=== PATIENT | male | born 1985 | race Caucasian/White ===

== ENCOUNTER 2017-07-05 10:49 | Emergency (ER) | payer OTHER ==
[2017-07-05] MEDS ORDERED: NORMAL SALINE 1000 ML 1,000 ML IV ONE ×2 (11:12→12:07)
--- NOTE | 2017-07-05 11:25 | ER Document Report ---
ED Medical Screen (RME) - General Chief Complaint: Abdominal Pain Stated Complaint: PAIN ON LEFT SIDE Time Seen by Provider: 07/05/17 11:12 Notes: Patient presents with severe left upper quadrant abdominal pain and vomiting. He states he was just discharged from [facility] on Jun 26. He states that he spent approximately 3 months in the hospital for necrotizing pancreatitis. He states no cause for the pancreatitis was ever found. He states he had multiple abscesses in his abdomen that were treated with antibiotics at various times during the 3 months. He states that the doctor at the [facility] told him to come to the hospital today and have a CAT scan. The phone number for this doctor is with extension [phone]. The doctor's name is Dr. Hoffmann. I tried to call from triage but he was in the operating room. TRAVEL OUTSIDE OF THE [place] IN LAST 30 DAYS: No - Related Data Allergies/Adverse Reactions: No Known Allergies Allergy (Unverified 07/05/17 10:51) Home Medications: Current Home Medications Acetaminophen [Acetaminophen] 650 mg PO PRN PRN 07/05/17 [History] Calcium Carbonate [Calcium] 750 mg PO PRN PRN 07/05/17 [History] Gabapentin [Gabapentin] 300 mg PO TID 07/05/17 [History] Hydromorphone HCl 2 mg PO PRN PRN 07/05/17 [History] NPH, Human Insulin Isophane [Novolin N (NPH) Insulin 100 unit/mL] 1 unit SUBCUT ACHS 07/05/17 [History] Ondansetron HCl [Ondansetron HCl] 8 mg PO PRN PRN 07/05/17 [History] Sertraline HCl [Zoloft 50 mg Tablet] 100 mg PO DAILY 07/05/17 [History] Warfarin Sodium [Warfarin Sodium] 2.5 mg PO QPM 07/05/17 [History] Past Medical History - Social History Chew tobacco use (# tins/day): No Frequency of alcohol use: None Drug Abuse: None Renal/ Medical History: Denies: Hx Peritoneal Dialysis Physical Exam - Vital signs Vitals: Temp Pulse Resp BP Pulse Ox 98.7 F 137 H 18 133/88 H 99 07/05/17 10:59 07/05/17 10:59 07/05/17 10:59 07/05/17 10:59 07/05/17 10:59 Course - Vital Signs Vital signs: Temp Pulse Resp BP Pulse Ox 98.7 F 137 H 18 133/88 H 99 07/05/17 10:59 07/05/17 10:59 07/05/17 10:59 07/05/17 10:59 07/05/17 10:59
--- NOTE | 2017-07-05 11:45 | ER Document Report ---
ED GI/ - General Chief Complaint: Abdominal Pain Stated Complaint: PAIN ON LEFT SIDE Time Seen by Provider: 07/05/17 11:12 Notes: The patient is a 31-year-old male, past medical history necrotizing pancreatitis status post partial pancreatectomy 3 months ago with 3 months of admission to [facility], right upper extremity DVT (on Coumadin), presents with increasing left upper quadrant and epigastric abdominal pain. He called his surgeon, Dr. Hoffmann, and was told to come to the closest ER for a CAT scan to make sure that he does not have any reaccumulation of his abscesses. Patient denies nausea, vomiting, hematuria, dysuria, flank pain, chest pain, shortness of breath, diarrhea, constipation or headache. TRAVEL OUTSIDE OF THE [place] IN LAST 30 DAYS: No - Related Data Allergies/Adverse Reactions: No Known Allergies Allergy (Unverified 07/05/17 10:51) Home Medications: Current Home Medications Acetaminophen [Acetaminophen] 650 mg PO PRN PRN 07/05/17 [History] Calcium Carbonate [Calcium] 750 mg PO PRN PRN 07/05/17 [History] Gabapentin [Gabapentin] 300 mg PO TID 07/05/17 [History] Hydromorphone HCl 2 mg PO PRN PRN 07/05/17 [History] NPH, Human Insulin Isophane [Novolin N (NPH) Insulin 100 unit/mL] 1 unit SUBCUT ACHS 07/05/17 [History] Ondansetron HCl [Ondansetron HCl] 8 mg PO PRN PRN 07/05/17 [History] Sertraline HCl [Zoloft 50 mg Tablet] 100 mg PO DAILY 07/05/17 [History] Warfarin Sodium [Warfarin Sodium] 2.5 mg PO QPM 07/05/17 [History] Past Medical History - General Information source: Patient - Social History Smoking Status: Former Smoker Chew tobacco use (# tins/day): No Frequency of alcohol use: None Drug Abuse: None Family History: Reviewed & Not Pertinent Patient has suicidal ideation: No Patient has homicidal ideation: No Renal/ Medical History: Denies: Hx Peritoneal Dialysis Review of Systems - Review of Systems Notes: REVIEW OF SYSTEMS: CONSTITUTIONAL: -fevers, -chills EENT: -eye pain, -difficulty swallowing, -nasal congestion CARDIOVASCULAR:-chest pain, -syncope. RESPIRATORY: -cough, -SOB GASTROINTESTINAL: +abdominal pain, -nausea, -vomiting, -diarrhea GENITOURINARY: -dysuria, -hematuria MUSCULOSKELETAL: -back pain, -neck pain SKIN: -rash or skin lesions. HEMATOLOGIC: -easy bruising or bleeding. LYMPHATIC: -swollen, enlarged glands. NEUROLOGICAL: -altered mental status or loss of consciousness, -headache, - neurologic symptoms PSYCHIATRIC: -anxiety, -depression. ALL OTHER SYSTEMS REVIEWED AND NEGATIVE. Physical Exam - Vital signs Vitals: Temp Pulse Resp BP Pulse Ox 98.7 F 137 H 18 133/88 H 99 07/05/17 10:59 07/05/17 10:59 07/05/17 10:59 07/05/17 10:59 07/05/17 10:59 - Notes Notes: PHYSICAL EXAMINATION: GENERAL: Mild distress. HEAD: Atraumatic, normocephalic. EYES: Pupils equal round and reactive to light, extraocular movements intact, sclera anicteric, conjunctiva are normal. ENT: nares patent, oropharynx clear without exudates. Moist mucous membranes. NECK: Normal range of motion, supple without lymphadenopathy LUNGS: Breath sounds clear to auscultation bilaterally and equal. No wheezes rales or rhonchi. HEART: Tachycardia, regular rhythm ABDOMEN: Soft, moderate epigastric tenderness, normoactive bowel sounds. J-tube in place. Multiple surgical scars. No guarding, no rebound. No masses appreciated. EXTREMITIES: Normal range of motion, no pitting or edema. No cyanosis. NEUROLOGICAL: Cranial nerves grossly intact. Normal speech, normal gait. Normal sensory and motor exams. PSYCH: Normal mood, normal affect. SKIN: Warm, Dry, normal turgor, no rashes or lesions noted. Course - Re-evaluation Re-evalutation: 07/05/17 14:11 Pt with clinical evidence of pancreatitis on exam, with elevated lipase and on CAT scan. Patient also has a 2 mm right proximal stone with mild hydronephrosis, but he has no right flank pain or symptoms of kidney stones. Placed a call to his surgeon at the [facility] and spoke to his internet project manager. Awaiting a call back. 07/05/17 15:15 Spoke to Kieran (Surgery Grinder Set Up Operator [employer] at [facility]) and he will accept patient under Dr. John Bruno's service. Placed call to transfer center and left message. Awaiting callback. 07/05/2017 15:30 Spoke to [employer] Infrastructure Consultant and she is sending paperwork for transfer. 07/05/17 18:48 Spoke to [facility] and he has officially been accepted as a transfer. - Vital Signs Vital signs: Temp Pulse Resp BP Pulse Ox 98.7 F 137 H 18 133/88 H 99 07/05/17 10:59 07/05/17 10:59 07/05/17 10:59 07/05/17 10:59 07/05/17 10:59 - Laboratory Result Diagrams: 07/05/17 11:37 07/05/17 11:37 Laboratory results interpreted by me: 07/05/17 07/05/17 07/05/17 11:37 11:37 11:37 RBC 3.70 L Hgb 10.9 L Hct 32.3 L RDW 20.9 H PT 39.3 H APTT 81.2 H Glucose 170 H Calcium 10.3 H AST 160 H ALT 268 H Alkaline Phosphatase 490 H Lipase 2282.0 H Urine Protein Urine Glucose (UA) Urine Blood Ur Leukocyte Esterase 07/05/17 14:31 RBC Hgb Hct RDW PT APTT Glucose Calcium AST ALT Alkaline Phosphatase Lipase Urine Protein 100 H Urine Glucose (UA) 50 H Urine Blood LARGE H Ur Leukocyte Esterase TRACE H - Diagnostic Test Radiology reviewed: Image reviewed, Reports reviewed Radiology results interpreted by me: CT A/P: 1. Pancreatitis status post partial pancreatectomy. Correlation with serum chemistries is recommended. 2. Regional adenopathy. No obvious pancreatic mass. 3. 2 mm stone proximal right ureter. Mild hydronephrosis. - EKG Interpretation by Me EKG shows normal: Sinus rhythm, [place], Intervals, QRS Complexes, ST-T Waves Rate: Tachycardia Discharge - Discharge Clinical Impression: Pancreatitis, acute Qualifiers: Pancreatitis type: unspecified pancreatitis type Acute pancreatitis complication: unspecified Qualified Code(s): K85.90 - Acute pancreatitis without necrosis or infection, unspecified Condition: Stable Disposition: OTHER
[2017-07-05 11:56] LABS: ABSOLUTE EOSINOPHILS # (AUTO) 0.1 10^3/uL (0.0-0.6); ABSOLUTE LYMPHOCYTES (AUTO) 1.3 10^3/uL (0.5-4.7); ABSOLUTE MONOCYTES (AUTO) 0.8 10^3/uL (0.1-1.4); BASOPHILS % (AUTO) 0.3 % (0-2); EOSINOPHILS % (AUTO) 1.2 % (0-6); HEMATOCRIT 32.3 % (37.9-51.0); HEMOGLOBIN 10.9 g/dL (13.5-17.0); HGB HCT DIFFERENCE 0.4; LYMPHOCYTES % (AUTO) 13.5 % (13-45); MEAN CORPUSCULAR HEMOGLOBIN 29.4 pg (27.0-33.4); MEAN CORPUSCULAR HGB CONC 33.7 g/dL (32.0-36.0); MEAN CORPUSCULAR VOLUME 87 fl (80-97); MONOCYTES % (AUTO) 8.9 % (3-13); RED CELL DISTRIBUTION WIDTH 20.9 % (11.5-14.0); SEGMENTED NEUTROPHILS % (AUTO) 76.1 % (42-78); WHITE BLOOD COUNT 9.2 10^3/uL (4.0-10.5)
[2017-07-05 11:57] LABS: VENOUS BLOOD BASE EXCESS 1.8 mmol/L; VENOUS BLOOD HCO3 26.6 mmol/L (20-32); VENOUS BLOOD PCO2 42.4 mmHg (35-63); VENOUS BLOOD PH 7.42 (7.30-7.42)
[2017-07-05] MEDS ORDERED: HYDROMORPHONE HCL INJ/PF 2 MG/ML AMPULE IV ONE (12:07)
[2017-07-05 12:16] LABS: ALANINE AMINOTRANSFERASE 268 U/L (21-72); ALBUMIN 4.3 g/dL (3.5-5.0); ALKALINE PHOSPHATASE 490 U/L (38-126); ANION GAP 13 (5-19); ASPARTATE AMINO TRANSFERASE 160 U/L (17-59); BILIRUBIN,DIRECT 0.4 mg/dL (0.0-0.4); BILIRUBIN,TOTAL 0.8 mg/dL (0.2-1.3); BLOOD UREA NITROGEN 16 mg/dL (7-20); CALCIUM 10.3 mg/dL (8.4-10.2); CARBON DIOXIDE 30 mmol/L (22-30); CHLORIDE 101 mmol/L (98-107); CREATININE RESULT 1.03 mg/dL (0.52-1.25); GLUCOSE 170 mg/dL (75-110); POTASSIUM 4.1 mmol/L (3.6-5.0); SODIUM 144.3 mmol/L (137-145); TOTAL PROTEIN 7.8 g/dL (6.3-8.2)
--- NOTE | 2017-07-05 13:11 | EKG REPORT ---
SEVERITY:- OTHERWISE NORMAL ECG - SINUS TACHYCARDIA : Confirmed by: Rolly Del Valle MD 05-Jul-2017 13:10:53
--- NOTE | 2017-07-05 13:43 | RADIOLOGY REPORT (SQ) ---
EXAM DESCRIPTION: CT ABD/PELVIS WITH IV ONLY COMPLETED DATE/TIME: 07/05/2017 1:24 pm REASON FOR STUDY: luq pain/hx nec panc COMPARISON: None. TECHNIQUE: CT scan of the abdomen and pelvis performed using helical scanning technique with dynamic intravenous contrast injection. No oral contrast. Images reviewed with lung, soft tissue, and bone windows. Reconstructed coronal and sagittal MPR images reviewed. Delayed images for evaluation of the urinary system also acquired. All images stored on PACS. All CT scanners at this facility use dose modulation, iterative reconstruction, and/or weight based d osing when appropriate to reduce radiation dose to as low as reasonably achievable (ALARA). [facility]: Dose Right [facility]: CareDose [facility]: Dose Right [facility]: Teradose 4D [facility]: Radar da Produção CONTRAST TYPE AND DOSE: contrast/concentration: Isovue 370.00 mg/ml; Total Contrast Delivered: 64.0 ml; Total Saline Delivered: 65.0 ml RENAL FUNCTION: BUN 16 creatinine 1.0 RADIATION DOSE: CT Rad equipment meets quality standard of care and radiation dose reduction techniq ues were employed. CTDIvol: NaN - NaN mGy. DLP: 0 mGy-cm.. LIMITATIONS: None. FINDINGS: LOWER CHEST: Trace left pleural fluid. LIVER: Normal size. No masses. No dilated ducts. SPLEEN: Normal size. No focal lesions. PANCREAS: Partial pancreatectomy. No obvious pancreatic mass or obvious necrosis. Inflammatory walter ges in the lesser sac. GALLBLADDER: No identified stones by CT criteria. No inflammatory changes to suggest cholecystitis. ADRENAL GLANDS: No significant masses or asymmetry. RIGHT KIDNEY AND URETER: No solid masses. 2 mm stone proximal right ureter. Renal calculi measurin g up to about 2 mm. Mild hydronephrosis. LEFT KIDNEY AND URETER: No solid masses. Renal calculi measuring up to about 2 mm. No hydronephro sis or hydroureter. AORTA AND VESSELS: No aneurysm or pseudoaneurysm. RETROPERITONEUM: Subcentimeter retroperitoneal nodes. BOWEL AND PERITONEAL CAVITY: Percutaneous jejunostomy to right of midline. No significant ascites. Regional adenopathy in the celiac axis maximum diameter just over 1 cm. No free air. APPENDIX: Not visualized. PELVIS: Presacral soft tissue density measuring about 2.0 x 5.6 cm in AP by craniocaudal diameter. ABDOMINAL WALL: See above. No evidence of incarcerated hernia. BONES: No acute findings. Osteopenia. OTHER: No other significant finding. IMPRESSION: 1. Pancreatitis status post partial pancreatectomy. Correlation with serum chemistries is recommende d. 2. Regional adenopathy. No obvious pancreatic mass. 3. 2 mm stone proximal right ureter. Mild hydronephrosis. TECHNICAL DOCUMENTATION: JOB ID: [id number] Quality ID # [id number]: Final reports with documentation of one or more dose reduction techniques (e.g., Au tomated exposure control, adjustment of the mA and/or kV according to patient size, use of iterative reconstruction technique) 2010 [employer]- All Rights Reserved
[2017-07-05] MEDS: HYDROMORPHONE HCL INJ/PF 2 MG/ML AMPULE IV PRN ×5 (14:18→23:46)
[2017-07-05] MEDS ORDERED: ONDANSETRON HCL INJ/PF 4 MG/2 ML SDV IV ONE (14:37)
[2017-07-05 14:54] LABS: PROTHROMBIN TIME 39.3 SEC (11.4-15.4)
[2017-07-05 14:55] LABS: PARTIAL THROMBOPLASTIN TIME 81.2 SEC (23.5-35.8)
[2017-07-05 14:59] LABS: APPEARANCE,URINE SLIGHTLY-CLOUDY; BILIRUBIN,URINE NEGATIVE (NEGATIVE); GLUCOSE, URINE 50 mg/dL (NEGATIVE); KETONES,URINE NEGATIVE (NEGATIVE); LEUKOCYTE ESTERASE,URINE TRACE (NEGATIVE); NITRITE,URINE NEGATIVE (NEGATIVE); PROTEIN,URINE 100 mg/dL (NEGATIVE); URINE SPECIFIC GRAVITY 1.021; UROBILINOGEN,URINE NEGATIVE mg/dL (<2.0)
[2017-07-05] MEDS ORDERED: NORMAL SALINE 1000 ML 1,000 ML IV PRN (16:40)
[2017-07-05] MEDS: CYCLOBENZAPRINE HCL 10 MG TABLET PO PRN (17:14)
[2017-07-05] MEDS ORDERED: INSULIN NPH (ISOPHANE), HUMAN 100 UNIT/ML 3 ML SUBCUT SCH (18:00)
[2017-07-06] MEDS: HYDROMORPHONE HCL INJ/PF 2 MG/ML AMPULE IV PRN ×7 (01:33→19:30)
[2017-07-06] MEDS: CYCLOBENZAPRINE HCL 10 MG TABLET PO PRN (04:20)
[2017-07-06] MEDS ORDERED: DEXTROSE 50%-WATER 25 GM/50 ML DISP.SYRIN IV ONE ×2 (04:23→06:31)
[2017-07-06] MEDS: DEXTROSE 5%-NORMAL SALINE 1,000 ML IV PRN ×2 (06:52→15:14)
[2017-07-06] MEDS ORDERED: DIPHENHYDRAMINE HCL 50 MG/ML VIAL IV ONE (08:02)
[2017-07-06] MEDS ORDERED: QUETIAPINE FUMARATE 25 MG TABLET PO SCH (10:00)
[2017-07-06] MEDS ORDERED: SERTRALINE HCL 50 MG TABLET PO SCH (11:00)
--- NOTE | 2017-07-06 11:33 | ER Document Report ---
Doctor's Note Notes: 07/06/17 11:31 Patient has been evaluated stable for transfer at this time currently waiting on [place] approval of transportation.
[2017-07-06 20:47] VITALS: BP 141/99
== END 2017-07-06 20:30 ==
LOC: ER 10:49
DX: K85.90 Acute pancreatitis without necrosis or infection, unspecified (principal); Z90.411 Acquired partial absence of pancreas; N13.2 Hydronephrosis with renal and ureteral calculous obstruction; R10.12 Left upper quadrant pain; R10.13 Epigastric pain; R00.0 Tachycardia, unspecified; I82.621 Acute embolism and thrombosis of deep veins of right upper extremity; Z79.01 Long term (current) use of anticoagulants; Z87.891 Personal history of nicotine dependence
CPT/HCPCS: 93005; 96376; 99285; 96361; 96374; 96375; 36415; 87040; 87086; 82962; 83690; 85025; 85610; 85730; 80053; 81001; 82803; 83605; 74177; 93010; J3490; J1200; J1170 ×2; J2405; J7030

== ENCOUNTER 2017-08-28 09:19 | Emergency (ER) | payer OTHER, MEDICAID ==
[2017-08-28] MEDS ORDERED: ONDANSETRON HCL INJ/PF 4 MG/2 ML SDV IV ONE (09:39)
[2017-08-28] MEDS ORDERED: MAG HYDROX/AL HYDROX/SIMETH SUSP 30 ML UDCUP PO ONE (09:43)
[2017-08-28] MEDS ORDERED: LIDOCAINE 2% VISCOUS SOLN 20 ML UDCUP PO ONE (09:43)
[2017-08-28] MEDS ORDERED: METOCLOPRAMIDE HCL ORAL SOLN 10 MG/10 ML UDCUP PO ONE (09:43)
[2017-08-28 10:15] LABS: ABSOLUTE EOSINOPHILS # (AUTO) 0.1 10^3/uL (0.0-0.6); ABSOLUTE LYMPHOCYTES (AUTO) 1.4 10^3/uL (0.5-4.7); ABSOLUTE MONOCYTES (AUTO) 0.8 10^3/uL (0.1-1.4); ABSOLUTE NEUT (AUTO) 11.8 10^3/uL (1.7-8.2); BASOPHILS % (AUTO) 0.3 % (0-2); EOSINOPHILS % (AUTO) 0.5 % (0-6); HEMATOCRIT 37.6 % (37.9-51.0); HEMOGLOBIN 12.6 g/dL (13.5-17.0); MEAN CORPUSCULAR HEMOGLOBIN 27.9 pg (27.0-33.4); MEAN CORPUSCULAR HGB CONC 33.5 g/dL (32.0-36.0); MEAN CORPUSCULAR VOLUME 83 fl (80-97); MONOCYTES % (AUTO) 5.6 % (3-13); PLATELET COUNT 270 10^3/uL (150-450); RED CELL DISTRIBUTION WIDTH 14.7 % (11.5-14.0); SEGMENTED NEUTROPHILS % (AUTO) 83.6 % (42-78); TOTAL CELLS COUNTED % (AUTO) 100 %; WHITE BLOOD COUNT 14.1 10^3/uL (4.0-10.5)
[2017-08-28 10:29] LABS: ALANINE AMINOTRANSFERASE 63 U/L (21-72); ALBUMIN 4.7 g/dL (3.5-5.0); ALKALINE PHOSPHATASE 153 U/L (38-126); ANION GAP 5 (5-19); ASPARTATE AMINO TRANSFERASE 62 U/L (17-59); BILIRUBIN,DIRECT 0.3 mg/dL (0.0-0.4); BILIRUBIN,TOTAL 0.3 mg/dL (0.2-1.3); BLOOD UREA NITROGEN 22 mg/dL (7-20); CALCIUM 10.6 mg/dL (8.4-10.2); CARBON DIOXIDE 27 mmol/L (22-30); CHLORIDE 110 mmol/L (98-107); CREATINE KINASE 158 U/L (55-170); GLUCOSE 76 mg/dL (75-110); POTASSIUM 4.4 mmol/L (3.6-5.0); SODIUM 142.4 mmol/L (137-145)
[2017-08-28 10:40] LABS: CREATINE KINASE MB 0.32 ng/mL (<4.55); TROPONIN I < 0.012 ng/mL
[2017-08-28 11:30] LABS: INTERNATIONAL RATION (INR) 1.67; PROTHROMBIN TIME 20.7 SEC (11.4-15.4)
--- NOTE | 2017-08-28 12:07 | RADIOLOGY REPORT (SQ) ---
EXAM DESCRIPTION: CTA CHEST COMPLETED DATE/TIME: 08/28/2017 11:45 am REASON FOR STUDY: hx multiple pe/dvt, right side chest pain COMPARISON: None. TECHNIQUE: CT scan of the chest performed using helical scanning technique with dynamic intravenous contrast injection. Images reviewed with lung, soft tissue and bone windows. Reconstructed coronal and sagittal MPR images reviewed. Additional 3 dimensional post-processing performed to develop Maximal Intensity Projection images (MD P). All images stored on PACS. All CT scanners at this facility use dose modulation, iterative reconstruction, and/or weight based d osing when appropriate to reduce radiation dose to as low as reasonably achievable (ALARA). [facility]: Dose Right [facility]: CareDose [facility]: Dose Right [facility]: Teradose 4D [facility]: [employer] CONTRAST TYPE AND DOSE: contrast/concentration: Isovue 370.00 mg/ml; Total Contrast Delivered: 65.0 ml; Total Saline Delivered: 85.0 ml Contrast bolus adequate for pulmonary arteries and aorta. RENAL FUNCTION: BUN 22 creatinine 0.91. RADIATION DOSE: CT Rad equipment meets quality standard of care and radiation dose reduction techniq ues were employed. CTDIvol: 14.3 - 16.5 mGy. DLP: 524 mGy-cm. . LIMITATIONS: None. FINDINGS: LUNGS AND PLEURA: No masses, infiltrates, pneumothorax. No pleural effusions, calcificati ons. AORTA AND GREAT VESSELS: No aneurysm. No dissection. HEART: No pericardial effusion. No significant coronary artery calcifications. PULMONARY ARTERIES: No emboli visualized in the main pulmonary arteries or the segmental branches. HILAR AND MEDIASTINAL STRUCTURES: No identified masses or abnormal nodes. HARDWARE: None in the chest. UPPER ABDOMEN: Gallstone. Limited exam. THYROID AND OTHER SOFT TISSUES: No masses. No adenopathy. BONES: No acute or significant finding. 3D MIPS: Confirm above findings. OTHER: No other significant finding. IMPRESSION: NORMAL CTA OF THE CHEST. NO PULMONARY EMBOLI. GALLSTONE. NO OTHER SIGNIFICANT FINDINGS COMMENT: Quality ID # [id number]: Final reports with documentation of one or more dose reduction techniques (e.g., Automated exposure control, adjustment of the mA and/or kV according to patient size, use of iterative reconstruction technique) TECHNICAL DOCUMENTATION: JOB ID: [id number] [employer]- All Rights Reserved
[2017-08-28] MEDS ORDERED: FENTANYL CITRATE INJ/PF 100 MCG/2 ML AMPUL IV ONE (12:12)
--- NOTE | 2017-08-28 12:13 | ER Document Report ---
ED General - General Chief Complaint: Nausea/Vomiting Stated Complaint: BODY ACHES Time Seen by Provider: 08/28/17 09:37 Mode of Arrival: Ambulatory Information source: Patient Notes: 31-year-old male history of extensive pancreatitis abscesses multiple drains and eventual surgery for cleanout with a feeding tube presents with complaints of right-sided chest pain. Patient denies any fevers or chills admits to nausea shortness of breath. Patient has multiple history of PEs PTs and other types of blood clots TRAVEL OUTSIDE OF THE [place] IN LAST 30 DAYS: No - HPI Onset: Just prior to arrival Onset/Duration: Sudden Quality of pain: Sharp Severity: Mild Pain Level: 1 Associated symptoms: Nausea, Vomiting Exacerbated by: Denies Relieved by: Denies Similar symptoms previously: No Recently seen / treated by doctor: No - Related Data Allergies/Adverse Reactions: No Known Allergies Allergy (Unverified 07/05/17 10:51) Past Medical History - Social History Smoking Status: Former Smoker Cigarette use (# per day): No Chew tobacco use (# tins/day): No Smoking Education Provided: No Frequency of alcohol use: None Drug Abuse: None Family History: Reviewed & Not Pertinent Patient has suicidal ideation: No Patient has homicidal ideation: No Renal/ Medical History: Denies: Hx Peritoneal Dialysis Past Surgical History: Reports: Hx Abdominal Surgery - pancreas removal Review of Systems - Review of Systems Notes: REVIEW OF SYSTEMS: CONSTITUTIONAL : Denies fever, chills, or sweats. Denies recent illness. EENT: Denies eye, ear, throat, or mouth pain or symptoms. Denies nasal or sinus congestion or discharge. Denies throat, tongue, or mouth swelling or difficulty swallowing. CARDIOVASCULAR: Admits to right-sided chest pain RESPIRATORY: Admits shortness of breath GASTROINTESTINAL: Some nausea vomiting GENITOURINARY: Denies difficulty urinating, painful urination, burning, frequency, blood in urine, or discharge. MUSCULOSKELETAL: Denies back or neck pain or stiffness. Denies joint pain or swelling. SKIN: Denies rash, lesions or sores. HEMATOLOGIC : Denies easy bruising or bleeding. LYMPHATIC: Denies swollen, enlarged glands. NEUROLOGICAL: Denies confusion or altered mental status. Denies passing out or loss of consciousness. Denies dizziness or lightheadedness. Denies headache. Denies weakness or paralysis or loss of use of either side. Denies problems with gait or speech. Denies sensory loss, numbness, or tingling. Denies seizures. PSYCHIATRIC: Denies anxiety or stress. Denies depression, suicidal ideation, or homicidal ideation. ALL OTHER SYSTEMS REVIEWED AND NEGATIVE. Dictation was performed using [employer] voice recognition software PHYSICAL EXAMINATION: GENERAL: Well-appearing, well-nourished and in no acute distress. HEAD: Atraumatic, normocephalic. EYES: Pupils equal round and reactive to light, extraocular movements intact, sclera anicteric, conjunctiva are normal. ENT: Nares patent, oropharynx clear without exudates. Moist mucous membranes. NECK: Normal range of motion, supple without lymphadenopathy LUNGS: Breath sounds clear to auscultation bilaterally and equal. No wheezes rales or rhonchi. HEART: Regular rate and rhythm without murmurs ABDOMEN: Large mid abdominal surgical incision right-sided feeding tube Musculoskeletal: Normal range of motion, no pitting or edema. No cyanosis. NEUROLOGICAL: Cranial nerves grossly intact. Normal speech, normal gait. Normal sensory, motor exams PSYCH: Normal mood, normal affect. SKIN: Warm, Dry, normal turgor, no rashes or lesions noted. Physical Exam - Vital signs Vitals: Temp Pulse Resp BP Pulse Ox 98.3 F 101 H 20 148/90 H 97 08/28/17 09:27 08/28/17 09:27 08/28/17 09:27 08/28/17 09:27 08/28/17 09:27 Course - Re-evaluation Re-evalutation: 08/28/17 12:14 CTA was negative, patient does have mild white count, a gallstone was noted therefore ultrasound has been ordered to evaluate for any cholecystitis 08/28/17 14:02 [facility] paged at request of family, sludge ball noted at neck of gallbladder which I beleive is the cuase of the pancreatitis. 08/28/17 14:05 [facility] is on diversion , I explained this to the patient, he wishes to be discharged and does not want to be transferred or admitted, he would prefer to call his own surgeon at [place], I explained to him the risks and benefits a sedated it appears pancreatitis is secondary to gallstones, I believe this is a terrible idea, I believe the patient will get infected and can become very sick and from this. He states he understands he understands the risks and benefits but he wishes to go home and called the surgeon himself. His phone does not work here and he does not have a number for the surgeon for me to call , therefore at his request since he is alert and oriented I will discharge with the understanding that he will get sicker if this is not taking care of After performing a Medical Screening Examination, I spoke with the patient at length in regards to leaving the hospital against medical advice. I do not believe the patient should leave but the patient is alert oriented x4, understands the risks and benefits of staying and leaving including disability and . Pt understands that he can return at any time for further care and is more than welcome to do so. Pt verbalizes this understanding. - Vital Signs Vital signs: Temp Pulse Resp BP Pulse Ox 98.3 F 101 H 16 130/82 H 98 08/28/17 09:27 08/28/17 09:27 08/28/17 11:01 08/28/17 11:01 08/28/17 11:01 - Laboratory Result Diagrams: 08/28/17 10:03 08/28/17 10:03 Laboratory results interpreted by me: 08/28/17 08/28/17 08/28/17 10:03 10:03 10:03 WBC 14.1 H Hgb 12.6 L Hct 37.6 L RDW 14.7 H Seg Neutrophils % 83.6 H Lymphocytes % 10.0 L Absolute Neutrophils 11.8 H PT 20.7 H Chloride 110 H BUN 22 H Calcium 10.6 H AST 62 H Alkaline Phosphatase 153 H Lipase 08/28/17 10:03 WBC Hgb Hct RDW Seg Neutrophils % Lymphocytes % Absolute Neutrophils PT Chloride BUN Calcium AST Alkaline Phosphatase Lipase 2847.0 H - Diagnostic Test Radiology reviewed: Image reviewed, Reports reviewed Discharge - Discharge Clinical Impression: Gallstone pancreatitis Abdominal pain Qualifiers: Abdominal location: right upper quadrant Qualified Code(s): R10.11 - Right upper quadrant pain Condition: Poor Disposition: AGAINST MEDICAL ADVICE Instructions: Abdominal Pain ([facility]) Additional Instructions: Please contact your surgeon immediately or return if there are any other concerns Prescriptions: Ciprofloxacin HCl [Cipro 500 mg Tablet] 500 mg PO BID #20 tablet Hydrocodone/Acetaminophen [[place] 5-325 mg Tablet] 1 tab PO Q6 #10 tablet Metoclopramide HCl [Reglan 10 mg Tablet] 1 - 2 tab PO ASDIR PRN #25 tablet PRN Reason: Metronidazole [Flagyl 500 mg Tablet] 500 mg PO Q8 #30 tablet
[2017-08-28] MEDS: NORMAL SALINE 1000 ML 1,000 ML IV PRN ×2 (13:43→13:45)
--- NOTE | 2017-08-28 13:55 | RADIOLOGY REPORT (SQ) ---
EXAM DESCRIPTION: U/S ABDOMEN LIMITED W/O DOP COMPLETED DATE/TIME: 08/28/2017 1:35 pm REASON FOR STUDY: RUQ COMPARISON: Chest CTA dated 08/28/2017. TECHNIQUE: Dynamic and static grayscale images acquired of the right upper quadrant and recorded on PACS. Additional selected color Doppler and spectral images recorded. LIMITATIONS: Study limited due to acoustical interference from fat or from air in the bowel. FINDINGS: PANCREAS: Obscured. LIVER: No masses. Echotexture normal. LIVER VASCULATURE: Normal directional flow of the main portal vein and hepatic veins. GALLBLADDER: Rounded echogenic material in the neck of the gallbladder. Nonvascular on Doppler imagi ng. Normal wall thickness. No pericholecystic fluid. ULTRASOUND-DETECTED STRICKLAND'S SIGN: Negative. INTRAHEPATIC DUCTS AND COMMON DUCT: CBD and intrahepatic ducts normal caliber. No filling defects. INFERIOR VENA CAVA: Normal flow. AORTA: Poorly visualized. RIGHT KIDNEY: Normal size. Normal echogenicity. No solid or suspicious masses. No hydronephrosis. No calcifications. PERITONEAL CAVITY AND RIGHT PLEURAL SPACE: No ascites or effusions. OTHER: No other significant finding. IMPRESSION: FOCAL SLUDGE OR " SLUDGE BALL" IN THE NECK OF THE GALLBLADDER. NO OTHER SIGNIFICANT FI NDINGS. TECHNICAL DOCUMENTATION: JOB ID: [id number] [email or web address]- All Rights Reserved
[2017-08-28 14:19] VITALS: BP 129/87
--- NOTE | 2017-08-28 15:17 | EKG REPORT ---
SEVERITY:- NORMAL ECG - SINUS RHYTHM : Confirmed by: Darryl Rodas 28-Aug-2017 15:16:26
== END 2017-08-28 14:40 | disposition left against medical advice (07) ==
LOC: ER 09:19
DX: K85.10 Biliary acute pancreatitis without necrosis or infection (principal); R10.11 Right upper quadrant pain; R11.2 Nausea with vomiting, unspecified; M79.1 Myalgia; Z93.1 Gastrostomy status; Z87.891 Personal history of nicotine dependence
CPT/HCPCS: 93005; 99284; 96361; 96374; 96375; 36415; 82553; 82550; 83690; 85025; 85610; 80053; 84484; 76705; 71275; 93010; J3010; J3490; J2405; J7030

== ENCOUNTER 2017-10-10 12:02 | Emergency (ER) | payer MEDICAID, OTHER ==
[2017-10-10] MEDS: NORMAL SALINE 1000 ML 1,000 ML IV PRN ×2 (12:30→14:51)
--- NOTE | 2017-10-10 12:45 | ER Document Report ---
ED GI/ - General Mode of Arrival: Ambulatory Information source: Patient TRAVEL OUTSIDE OF THE [place] 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 and patient at bedside state "they were never able to identify the cause of the necrotizing pancreatitis". They go on to state that there were "7 or 8 abdominal abscesses identified as well" during this operation. Patient's states the patient was never a heavy drinker. Patient is on Creon and Coumadin secondary to "multiple blood clots from so many IVs". Patient states he has not seen blood in his vomit or stool. Patient states he is not aware of losing any blood recently. Patient denies diarrhea, EtOH abuse, or bloody stools/vomit. (JOSE PEREZ) - Related Data Allergies/Adverse Reactions: No Known Allergies Allergy (Verified 10/10/17 12:06) Past Medical History - General Information source: Patient, Relative, [facility] Records - Social History Smoking Status: Unknown if Ever Smoked Cigarette use (# per day): No Frequency of alcohol use: None Drug Abuse: None Lives with: Family Family History: Reviewed & Not Pertinent GI Medical History: Reports: Hx Pancreatitis - Necrotizing Past Surgical History: Reports: Hx Abdominal Surgery - Multiple abdominal abscesses, Hx Pancreatic Surgery - Removal secondary to necrotizing pancreatitis <JOSE PEREZ - Last Filed: 10/10/17 16:18> Review of Systems - Review of Systems Constitutional: No symptoms reported EENT: No symptoms reported Cardiovascular: No symptoms reported Respiratory: No symptoms reported Gastrointestinal: See HPI, Abdominal pain, Vomiting. denies: Diarrhea, Blood in vomit, Black stools, Rectal bleeding Genitourinary: No symptoms reported Male Genitourinary: No symptoms reported Musculoskeletal: No symptoms reported Skin: No symptoms reported Hematologic/Lymphatic: No symptoms reported Neurological/Psychological: No symptoms reported -: Yes All other systems reviewed and negative <JOSE PEREZ - Last Filed: 10/10/17 16:18> Physical Exam <JOSE PEREZ - Last Filed: 10/10/17 16:18> <NOHEMI ADKINS - Last Filed: 10/16/17 07:02> - Vital signs Vitals: Temp Pulse Resp BP Pulse Ox 96.7 F L 154 H 26 H 69/34 L 100 10/10/17 12:13 10/10/17 12:13 10/10/17 12:13 10/10/17 12:13 10/10/17 12:13 - Notes Notes: Physical Exam: General: Alert, appears chronically ill, in moderate distress. HEENT: Normocephalic. Atraumatic. PERRL. Extraocular movements intact. Oropharynx clear. Pale conjuctiva. Neck: Supple. Non-tender. Respiratory: Mildly tachypneic with respiratory rate of 25-26. Clear and equal breath sounds bilaterally. Cardiovascular: Tachycardic, regular rhythm. Abdominal: Healed midline scar consistent with surgical history, J-tube in place , moderate generalized abdominal tenderness with palpation. Hypoactive Bowel Sounds. Back: Non-tender. No deformity or step off. Ecchymosis over left flank. Extremities: Moves all four extremities. Upper extremities: Normal inspection. Normal ROM. Lower extremities: Normal inspection. No edema. Normal ROM. Neurological: Normal cognition. AAOx4. Normal speech. Psychological: Normal affect. Normal Mood. Skin: Cool to the touch. Diaphoretic. Pallor. (JOSE PEREZ) Course - Laboratory Result Diagrams: 10/10/17 12:33 10/10/17 12:33 <JOSE PEREZ - Last Filed: 10/10/17 16:18> - Laboratory Result Diagrams: 10/10/17 12:33 10/10/17 12:33 <NOHEMI ADKINS - Last Filed: 10/16/17 07:02> - Re-evaluation Re-evalutation: 10/10/17 14:25 Call placed to [facility] for emergent transfer, no ICU beds. 10/10/17 14:30 Call placed to [facility] for emergent transfer, states they are not able to discuss bed availability, to send face sheet and they will call back. 10/10/17 14:35 Call placed to [facility] for emergent transfer, placed on hold for 20 minutes. 10/10/17 14:55 [facility] called back, Dr. Ferrera accepts patient for ED to ED transfer. Transport is being arranged. 10/10/17 15:10 [facility] not flying, waiting to hear back from [facility] regarding flight 10/10/17 15:25 [facility] will fly, 30 minute ETA. 10/10/17 16:00 [facility] flight crew has arrived. Awaiting the 2 units of packed cells. 10/10/17 16:18 Lab called and states that the patient has antibody strains positive in all 3 cells, blood would take "hours" to receive. (JOSE PEREZ) - Vital Signs Vital signs: Temp Pulse Resp BP Pulse Ox 97.5 F 154 H 24 H 91/66 L 100 10/10/17 14:06 10/10/17 12:13 10/10/17 16:03 10/10/17 16:03 10/10/17 16:02 - Laboratory Laboratory results interpreted by me: 10/10/17 10/10/17 10/10/17 12:16 12:33 12:33 WBC 25.4 H RBC 3.42 L Hgb 9.2 L Hct 27.7 L MCH 26.8 L RDW 14.3 H Seg Neuts % (Manual) 83 H Band Neutrophils % 1 L Lymphocytes % (Manual) 12 L Abs Neuts (Manual) 21.3 H Carbon Dioxide 13 L Anion Gap 24 H BUN 24 H Creatinine 1.42 H Est GFR (Non-Af Amer) 57 L Glucose 242 H POC Glucose 256 H AST 14 L Lipase 472.4 H Crossmatch 10/10/17 14:26 WBC RBC Hgb Hct MCH RDW Seg Neuts % (Manual) Band Neutrophils % Lymphocytes % (Manual) Abs Neuts (Manual) Carbon Dioxide Anion Gap BUN Creatinine Est GFR (Non-Af Amer) Glucose POC Glucose AST Lipase Crossmatch See Detail Procedures - Central Line Left Internal jugular Time completed: 15:50 Consent obtained: Yes Central line pre-insertion: Sterile PPE donned, Chloraprep applied, Sterile drapes applied Central line lumen type: Triple Anesthetic type: 1% Lidocaine mL's of anesthesia: 5 Ultrasound guided: Yes Line secured with sutures: Yes Central line post-insertion: Blood return from lumens, Biopatch applied, Sutured , Sterile dressing applied, Position confirmed w/ CXR Number of attempts: 2 Complications: No <NOHEMI ADKINS - Last Filed: 10/16/17 07:02> Critical Care Note <JOSE PEREZ - Last Filed: 10/10/17 16:18> - Critical Care Note Total time excluding time spent on procedures (mins): 75 <NOHEMI ADKINS - Last Filed: 10/16/17 07:02> - Critical Care Note Comments: minutes of critical care time spent in direct contact evaluating and reevaluating the patient, treating symptoms, reviewing labs and studies and speaking with family and consultants excluding any procedures (NOHEMI ADKINS) Discharge <JOSE PEREZ - Last Filed: 10/10/17 16:18> <NOHEMI ADKINS - Last Filed: 10/16/17 07:02> - Discharge Clinical Impression: Anemia due to blood loss, Pancreatitis Condition: Critical Disposition: [place] Referrals: BEBE REYES MD [Primary Care Provider] - Follow up as needed Scribe Attestation: 10/16/17 07:02 I personally performed the services described in the documentation, reviewed and edited the documentation which was dictated to the scribe in my presence, and it accurately records my words and actions. (NOHEMI ADKINS) Scribe Documentation - Scribe Written by Kyleigh:: Kyleigh Edmond, 10/10/2017 1355 acting as scribe for :: Lucille <JOSE PEREZ - Last Filed: 10/10/17 16:18>
[2017-10-10] MEDS ORDERED: ONDANSETRON HCL INJ/PF 4 MG/2 ML SDV IV ONE (12:46)
[2017-10-10 12:57] LABS: HEMATOCRIT 27.7 % (37.9-51.0); HEMOGLOBIN 9.2 g/dL (13.5-17.0); MEAN CORPUSCULAR HEMOGLOBIN 26.8 pg (27.0-33.4); MEAN CORPUSCULAR HGB CONC 33.1 g/dL (32.0-36.0); MEAN CORPUSCULAR VOLUME 81 fl (80-97); PLATELET COUNT 351 10^3/uL (150-450); RED BLOOD COUNT 3.42 10^6/uL (4.35-5.55); RED CELL DISTRIBUTION WIDTH 14.3 % (11.5-14.0); WHITE BLOOD COUNT 25.4 10^3/uL (4.0-10.5)
[2017-10-10] MEDS ORDERED: FENTANYL CITRATE INJ/PF 100 MCG/2 ML AMPUL ONE (13:06)
[2017-10-10] MEDS ORDERED: FENTANYL CITRATE INJ/PF 100 MCG/2 ML AMPUL IV ONE ×4 (13:07→14:37)
[2017-10-10 13:18] LABS: ALANINE AMINOTRANSFERASE 24 U/L (21-72); ALBUMIN 3.8 g/dL (3.5-5.0); ALKALINE PHOSPHATASE 110 U/L (38-126); ASPARTATE AMINO TRANSFERASE 14 U/L (17-59); BILIRUBIN,DIRECT 0.4 mg/dL (0.0-0.4); BILIRUBIN,TOTAL 0.9 mg/dL (0.2-1.3); BLOOD UREA NITROGEN 24 mg/dL (7-20); CALCIUM 9.9 mg/dL (8.4-10.2); CARBON DIOXIDE 13 mmol/L (22-30); GLUCOSE 242 mg/dL (75-110); LIPASE 472.4 U/L (23-300); POTASSIUM 3.8 mmol/L (3.6-5.0); TOTAL PROTEIN 6.5 g/dL (6.3-8.2)
[2017-10-10 13:22] LABS: ABSOLUTE NEUTROPHILS# (MANUAL) 21.3 10^3/uL (1.7-8.2); BAND NEUTROPHILS % (MANUAL) 1 % (3-5); BASOPHILS % (MANUAL) 0 % (0-2); EOSINOPHILS % (MANUAL) 0 % (0-6); LYMPHOCYTES % (MANUAL) 12 % (13-45); MONOCYTES % (MANUAL) 4 % (3-13); SEGMENTED NEUTROPHILS % (MAN) 83 % (42-78); TOTAL CELLS COUNTED 100
[2017-10-10 13:23] LABS: OVALOCYTES SLIGHT; PLATELET COMMENT ADEQUATE; POIKILOCYTOSIS SLIGHT; POLYCHROMASIA SLIGHT; TOXIC GRANULATION SLIGHT
[2017-10-10 13:24] LABS: CHLORIDE 101 mmol/L (98-107); SODIUM 137.5 mmol/L (137-145)
--- NOTE | 2017-10-10 13:24 | EKG REPORT ---
SEVERITY:- OTHERWISE NORMAL ECG - SINUS TACHYCARDIA : Confirmed by: Rolly Del Valle MD 10-Oct-2017 13:23:12
[2017-10-10 13:25] LABS: ANION GAP 24 (5-19)
--- NOTE | 2017-10-10 13:36 | RADIOLOGY REPORT (SQ) ---
EXAM DESCRIPTION: CHEST SINGLE VIEW COMPLETED DATE/TIME: 10/10/2017 1:22 pm REASON FOR STUDY: Abd pain, tachy, perform upright COMPARISON: None. EXAM PARAMETERS: NUMBER OF VIEWS: One view. TECHNIQUE: Single frontal radiographic view of the chest acquired. RADIATION DOSE: NA LIMITATIONS: None. FINDINGS: LUNGS AND PLEURA: No opacities, masses or pneumothorax. No pleural effusion. MEDIASTINUM AND HILAR STRUCTURES: No masses. Contour normal. HEART AND VASCULAR STRUCTURES: Heart normal in size. Normal vasculature. BONES: No acute findings. HARDWARE: None in the chest. OTHER: No other significant finding. IMPRESSION: NO ACUTE RADIOGRAPHIC FINDING IN THE CHEST. TECHNICAL DOCUMENTATION: JOB ID: [id number] [employer]- All Rights Reserved Reading location - IP/workstation name: [email or web address]
--- NOTE | 2017-10-10 14:21 | RADIOLOGY REPORT (SQ) ---
EXAM DESCRIPTION: CT ABD/PELVIS WITH IV ONLY COMPLETED DATE/TIME: 10/10/2017 1:55 pm REASON FOR STUDY: abd pain, hx of pancreatitis, abd surgeries COMPARISON: None. TECHNIQUE: CT scan of the abdomen and pelvis performed using helical scanning technique with dynamic intravenous contrast injection. No oral contrast. Images reviewed with lung, soft tissue, and bone windows. Reconstructed coronal and sagittal MPR images reviewed. Delayed images for evaluation of the urinary system also acquired. All images stored on PACS. All CT scanners at this facility use dose modulation, iterative reconstruction, and/or weight based d osing when appropriate to reduce radiation dose to as low as reasonably achievable (ALARA). [facility]: Dose Right [facility]: CareDose [facility]: Dose Right [facility]: Teradose 4D [facility]: medidametrics CONTRAST TYPE AND DOSE: contrast/concentration: Isovue 370.00 mg/ml; Total Contrast Delivered: 74.0 ml; Total Saline Delivered: 61.0 ml RENAL FUNCTION: BUN 24 creatinine 1.4 RADIATION DOSE: CT Rad equipment meets quality standard of care and radiation dose reduction techniq ues were employed. CTDIvol: 6.4 - 8.9 mGy. DLP: 832 mGy-cm.. LIMITATIONS: None. FINDINGS: LOWER CHEST: No significant findings. No nodules or infiltrates. LIVER: Normal size. No masses. No dilated ducts. SPLEEN: Normal size. No focal lesions. PANCREAS: Heterogeneous decreased attenuation. There is hemorrhage extending from the anterior parar enal space into the posterior pararenal space with active hemorrhage to left of midline series 3, carlotta ge 38. Bilateral posterior pararenal space hematoma is with the largest on the left measuring about 7.3 x 10 cm AP by transverse diameter by 12 cm craniocaudal diameter. Hemorrhage is displacing the i nferior pole of the left kidney superiorly. GALLBLADDER: No identified stones by CT criteria. No inflammatory changes to suggest cholecystitis. ADRENAL GLANDS: No significant masses or asymmetry. RIGHT KIDNEY AND URETER: No solid masses. No significant calcifications. No hydronephrosis or hyd roureter. LEFT KIDNEY AND URETER: See above. No solid masses. No significant calcifications. No hydronephr osis or hydroureter. AORTA AND VESSELS: No aneurysm. RETROPERITONEUM: See above. BOWEL AND PERITONEAL CAVITY: No obstruction. APPENDIX: Not visualized. PELVIS: No mass. No free fluid. Normal bladder. ABDOMINAL WALL: No masses. No hernias. BONES: No significant or acute findings. OTHER: No other significant finding. IMPRESSION: Active retroperitoneal hemorrhage, most likely from pancreatic branch of the splenic art denice secondary to fulminant acute pancreatitis. COMMENT: These findings were called to Dr. Laird at 1406 hours. TECHNICAL DOCUMENTATION: JOB ID: [id number] Quality ID # [id number]: Final reports with documentation of one or more dose reduction techniques (e.g., Au tomated exposure control, adjustment of the mA and/or kV according to patient size, use of iterative reconstruction technique) 2010 [employer]- All Rights Reserved Reading location - IP/workstation name: [email or web address]
[2017-10-10] MEDS ORDERED: NORMAL SALINE 250 ML IV PRN ×2 (15:00)
[2017-10-10] MEDS ORDERED: LIDOCAINE 1% INJ-PF (10 MG/ML) 30 ML SDV ONE (15:06)
[2017-10-10] MEDS ORDERED: NORMAL SALINE 1000 ML 1,000 ML IV ONE (15:41)
[2017-10-10] MEDS ORDERED: LORAZEPAM INJ 2 MG/1 ML VIAL IV ONE (15:56)
--- NOTE | 2017-10-10 16:00 | RADIOLOGY REPORT (SQ) ---
EXAM DESCRIPTION: CHEST SINGLE VIEW COMPLETED DATE/TIME: 10/10/2017 3:49 pm REASON FOR STUDY: CENTRAL LINE PLACEMENT COMPARISON: 10/10/2017 EXAM PARAMETERS: NUMBER OF VIEWS: One view. TECHNIQUE: Single frontal radiographic view of the chest acquired. RADIATION DOSE: NA LIMITATIONS: None. FINDINGS: LUNGS AND PLEURA: No opacities, masses or pneumothorax. No pleural effusion. MEDIASTINUM AND HILAR STRUCTURES: No masses. Contour normal. HEART AND VASCULAR STRUCTURES: Heart normal in size. Normal vasculature. BONES: No acute findings. HARDWARE: A left internal jugular catheter has its tip near the right atrium. OTHER: No other significant finding. IMPRESSION: Central line placement. TECHNICAL DOCUMENTATION: JOB ID: [id number] [employer]- All Rights Reserved Reading location - IP/workstation name: [email or web address]
[2017-10-10 17:39] VITALS: BP 91/66
== END 2017-10-10 16:30 | disposition short-term general hospital (02) ==
LOC: ER 12:02
DX: K85.90 Acute pancreatitis without necrosis or infection, unspecified (principal); D50.0 Iron deficiency anemia secondary to blood loss (chronic); R11.10 Vomiting, unspecified; R61 Generalized hyperhidrosis; Z86.718 Personal history of other venous thrombosis and embolism; Z79.01 Long term (current) use of anticoagulants; Z79.899 Other long term (current) drug therapy; R06.82 Tachypnea, not elsewhere classified; Z93.4 Other artificial openings of gastrointestinal tract status
CPT/HCPCS: 36556; 93005; 96376; 99291; 99292; 96361; 96374; 96375; 36415; 82962; 83690; 83735; 85025; 80053; 84484; 71045; 74177; 93010; C1751; J3010; J3490; J2060; J2405; J7030

== ENCOUNTER 2017-11-17 08:10 | Emergency (ER) | payer OTHER ==
[2017-11-17] MEDS ORDERED: NORMAL SALINE 1000 ML 1,000 ML IV ONE ×2 (08:57→09:13)
--- NOTE | 2017-11-17 08:59 | ER Document Report ---
ED GI/ - General Chief Complaint: Abdominal Pain Stated Complaint: ABDOMINAL PAIN Time Seen by Provider: 11/17/17 08:43 Notes: This is a 31-year-old male with history of necrotizing pancreatitis. Recently had episode which caused erosion into blood vessel retroperitoneally causing a bleed. Patient was transferred to [facility]. Was in the hospital several days. Had some sort of embolectomy with surgeon. Had a drain placed. Was draining what he discharged but now the last couple of weeks it has been clear. Denies any fever, chills, sweats. States that he ran out of his Creon on Monday but has been eating. States that this is more than likely cause irritation of his pancreas. TRAVEL OUTSIDE OF THE [place] IN LAST 30 DAYS: No - HPI Patient complains to provider of: Abdominal pain - Related Data Allergies/Adverse Reactions: No Known Allergies Allergy (Verified 11/17/17 09:03) Past Medical History - General Information source: Patient - Social History Smoking Status: Never Smoker Cigarette use (# per day): No Frequency of alcohol use: None Drug Abuse: None Lives with: Spouse/Significant other Family History: Reviewed & Not Pertinent Renal/ Medical History: Denies: Hx Peritoneal Dialysis GI Medical History: Reports: Hx Pancreatitis - Necrotizing Past Surgical History: Reports: Hx Abdominal Surgery - Multiple abdominal abscesses, Hx Pancreatic Surgery - Removal secondary to necrotizing pancreatitis Review of Systems - Review of Systems Constitutional: denies: Fever, Malaise, Weakness EENT: denies: Blurred vision, Double vision, Mouth pain Cardiovascular: Palpitations, Heart racing. denies: Chest pain Respiratory: Short of breath. denies: Cough, Hurts to breathe, Wheezing Gastrointestinal: Abdominal pain. denies: Diarrhea, Nausea, Vomiting Genitourinary: denies: Burning, Dysuria, Flank pain Musculoskeletal: Back pain. denies: Joint pain, Joint swelling, Muscle pain Skin: denies: Change in color, Dryness, Lesions, Rash Hematologic/Lymphatic: denies: Anemia, Blood clots, Easy bleeding, Easy bruising Neurological/Psychological: denies: Confusion, Weakness, Numbness Physical Exam - Vital signs Vitals: Temp Pulse Resp BP Pulse Ox 97.9 F 142 H 19 121/70 99 11/17/17 08:15 11/17/17 08:15 11/17/17 08:15 11/17/17 08:15 11/17/17 08:15 Interpretation: Tachycardic - General General appearance: Appears well, Alert In distress: Moderate - HEENT Head: Normocephalic, Atraumatic Eyes: Normal Pupils: PERRL - Respiratory Respiratory status: No respiratory distress Chest status: Nontender Breath sounds: Normal Chest palpation: Normal - Cardiovascular Rhythm: Tachycardia Heart sounds: Normal auscultation Murmur: No - Abdominal Inspection: Normal Distension: No distension Bowel sounds: Normal Tenderness: Tender, Other - Epigastric region. Patient has a drainage tube on the left lateral flank area. Appears intact and with no obvious surrounding erythema. Organomegaly: No organomegaly - Back Back: Normal, Nontender - Extremities General upper extremity: Normal inspection, Nontender, Normal color, Normal ROM , Normal temperature General lower extremity: Normal inspection, Nontender, Normal color, Normal ROM , Normal temperature, Normal weight bearing. No: Rivera's sign - Neurological Neuro grossly intact: Yes Cognition: Normal Orientation: AAOx4 [place] Coma Scale Eye Opening: Spontaneous [place] Coma Scale Verbal: Oriented [place] Coma Scale Motor: Obeys Commands Michael Coma Scale Total: 15 Speech: Normal Motor strength normal: LUE, RUE, LLE, RLE Sensory: Normal - Psychological Associated symptoms: Normal affect, Normal mood - Skin Skin Temperature: Warm Skin Moisture: Dry Skin Color: Normal Course - Re-evaluation Re-evalutation: 11/17/17 09:12 Patient with concern for pancreatitis based on history. Recent hemorrhagic pancreatitis requiring immediate intervention. Has a draining tube in place which is draining clear. Has not been taking his Creon as he has run out. We will get basic labs, pain control, fluids and reassess. Plus or minus CT scan. 11/17/17 10:37 Patient has new formed pseudocyst on pancreas which will likely need to be drained. Extremely elevated WBC count, elevated lipase. Unfortunately patient will likely need to be transferred. Will consult with [facility] as they recently had patient. 11/17/17 10:38 Laboratory 11/17/17 11/17/17 11/17/17 08:44 08:44 08:44 WBC 23.7 H RBC 3.75 L Hgb 9.9 L Hct 30.3 L MCV 81 MCH 26.4 L MCHC 32.6 RDW 18.2 H Plt Count 648 H Total Counted 100 Seg Neutrophils % Not Reportable Seg Neuts % (Manual) 77 Lymphocytes % Not Reportable Lymphocytes % (Manual) 17 Monocytes % Not Reportable Monocytes % (Manual) 6 Eosinophils % Not Reportable Eosinophils % (Manual) 0 Basophils % Not Reportable Basophils % (Manual) 0 Absolute Neutrophils Not Reportable Abs Neuts (Manual) 18.2 H Absolute Lymphocytes Not Reportable Abs Lymphs (Manual) 4.0 Absolute Monocytes Not Reportable Abs Monocytes (Manual) 1.4 Absolute Eosinophils Not Reportable Absolute Eos (Manual) 0.0 Absolute Basophils Not Reportable Abs Basophils (Manual) 0.0 Toxic Granulation SLIGHT Toxic Vacuolation PRESENT Platelet Comment INCREASED Polychromasia SLIGHT Anisocytosis 2+ PT INR APTT Sodium 140.5 Potassium 4.4 Chloride 98 Carbon Dioxide 27 Anion Gap 16 BUN 20 Creatinine 0.85 Est GFR ( Amer) > 60 Est GFR (Non-Af Amer) > 60 Glucose 155 H Lactic Acid Calcium 9.6 Total Bilirubin 1.4 H Direct Bilirubin 0.6 H Neonat Total Bilirubin Not Reportable Neonat Direct Bilirubin Not Reportable Neonat Indirect Bili Not Reportable AST 15 L ALT 30 Alkaline Phosphatase 155 H Total Protein 7.6 Albumin 3.6 Lipase 2027.7 H Urine Color Urine Appearance Urine pH Ur Specific [place] Urine Protein Urine Glucose (UA) Urine Ketones Urine Blood Urine Nitrite Urine Bilirubin Urine Urobilinogen Ur Leukocyte Esterase Urine WBC (Auto) Urine RBC (Auto) Urine Bacteria (Auto) Squamous Epi Cells Auto Urine Mucus (Auto) Urine Ascorbic Acid 11/17/17 11/17/17 11/17/17 08:44 09:20 09:38 WBC RBC Hgb Hct MCV MCH MCHC RDW Plt Count Total Counted Seg Neutrophils % Seg Neuts % (Manual) Lymphocytes % Lymphocytes % (Manual) Monocytes % Monocytes % (Manual) Eosinophils % Eosinophils % (Manual) Basophils % Basophils % (Manual) Absolute Neutrophils Abs Neuts (Manual) Absolute Lymphocytes Abs Lymphs (Manual) Absolute Monocytes Abs Monocytes (Manual) Absolute Eosinophils Absolute Eos (Manual) Absolute Basophils Abs Basophils (Manual) Toxic Granulation Toxic Vacuolation Platelet Comment Polychromasia Anisocytosis PT 16.1 H INR 1.22 APTT 38.1 H Sodium Potassium Chloride Carbon Dioxide Anion Gap BUN Creatinine Est GFR ( Amer) Est GFR (Non-Af Amer) Glucose Lactic Acid 0.8 Calcium Total Bilirubin Direct Bilirubin Neonat Total Bilirubin Neonat Direct Bilirubin Neonat Indirect Bili AST ALT Alkaline Phosphatase Total Protein Albumin Lipase Urine Color BIBI Urine Appearance SLIGHTLY-CLOUDY Urine pH 5.0 Ur Specific [place] 1.036 Urine Protein 100 H Urine Glucose (UA) NEGATIVE Urine Ketones NEGATIVE Urine Blood NEGATIVE Urine Nitrite NEGATIVE Urine Bilirubin SMALL H Urine Urobilinogen 4.0 H Ur Leukocyte Esterase NEGATIVE Urine WBC (Auto) 13 Urine RBC (Auto) 3 Urine Bacteria (Auto) TRACE Squamous Epi Cells Auto <1 Urine Mucus (Auto) MANY Urine Ascorbic Acid NEGATIVE Chest X-Ray 11/17/17 09:08 IMPRESSION: NO ACUTE RADIOGRAPHIC FINDING IN THE CHEST. Abdomen/Pelvis CT 11/17/17 09:13 IMPRESSION: Large lesser sac fluid collection, smaller left lower quadrant fluid collection worrisome for pseudocysts. Decrease in left perinephric fluid compared to previous studies. 11/17/17 10:55 Patient with large lesser sac fluid filled collection with a smaller left lower quadrant fluid collection were seen for pseudocysts. This would likely need to be drained according to radiologist but unable to do that at this facility. [facility] 11/17/17 11:[address] Malathi Juares with the surgery service at [facility] and she states that the patient needs to be transferred. Awaiting accepting bed status. Would like to transfer ER to ER however the ER is not accepting transfers at this time. 11/17/17 12:02 Patient has now decided that he does not want to be transferred. States that his is out of town and his kids get home from school and a little bit and he wants to be home for them. States that he needs to arrange for someone to watch his kids because his had to go out of town unexpectedly for . I have advised against this. I have offered him help with finding child psychiatrist. Patient states that if he does get worse he will return. I have explained in detail what is my concern at this time with regards to his significant pancreatic disease. Patient is understandable and accepts the risks of refusing transport at this time. 11/17/17 12:44 Patient was explained the risks and benefits of refusing transport. I did speak with the surgery team, Dr. Mason at [facility]. She is aware that he is not coming. Patient was signed out AMA - Vital Signs Vital signs: Temp Pulse Resp BP Pulse Ox 99.3 F 142 H 24 H 117/76 100 11/17/17 12:35 11/17/17 08:15 11/17/17 12:32 11/17/17 12:35 11/17/17 12:32 - Laboratory Result Diagrams: 11/17/17 08:44 11/17/17 08:44 Laboratory results interpreted by me: 11/17/17 11/17/17 11/17/17 08:44 08:44 08:44 WBC 23.7 H RBC 3.75 L Hgb 9.9 L Hct 30.3 L MCH 26.4 L RDW 18.2 H Plt Count 648 H Abs Neuts (Manual) 18.2 H PT APTT Glucose 155 H Total Bilirubin 1.4 H Direct Bilirubin 0.6 H AST 15 L Alkaline Phosphatase 155 H Lipase 2027.7 H Urine Protein Urine Bilirubin Urine Urobilinogen 11/17/17 11/17/17 08:44 09:38 WBC RBC Hgb Hct MCH RDW Plt Count Abs Neuts (Manual) PT 16.1 H APTT 38.1 H Glucose Total Bilirubin Direct Bilirubin AST Alkaline Phosphatase Lipase Urine Protein 100 H Urine Bilirubin SMALL H Urine Urobilinogen 4.0 H - EKG Interpretation by Me EKG shows normal: [place], Intervals, QRS Complexes, ST-T Waves Rate: Tachycardia Critical Care Note - Critical Care Note Total time excluding time spent on procedures (mins): 60 Comments: Tachycardia, consultation with specialists, anticipation of significant decline Discharge - Discharge Clinical Impression: Acute on chronic pancreatitis, Pancreatic pseudocyst/cyst Condition: Fair Disposition: HOME, SELF-CARE Additional Instructions: Pancreatitis You have significant issues with your pancreas. The CT scan shows fluid collections in abdomen which need to be evaluated by your surgeons. We would like to transfer you to [facility] however you have declined at this time. In the event that your symptoms are getting worse it will be very important that you return. Pancreatitis is an inflammation of the pancreas, an organ at the back of your abdomen. The pancreas produces insulin and enzymes that digest your food. Pancreatitis can be caused by gallstones in the bile duct, by alcohol or viruses, or by excess fat or calcium in the blood stream. Occasionally, pancreatitis occurs when a stomach ulcer marshall through into the pancreas. We try to find the cause of pancreatitis, but some tests can't be done until the pancreas heals. The usual symptoms of pancreatitis are pain in the pit of the stomach that goes straight through to the back, vomiting, and low-grade fever. Severe cases require hospital admission, but many patients with mild pancreatitis do well at home. You will probably need medicine for pain and for vomiting. Sometimes we prescribe medicine to decrease stomach acid secretion and to decrease flow of pancreatic juices. Start with a diet of clear liquids (soda pop, juices). When the pain is decreasing, you can add some simple starches (potato, toast, applesauce). Avoid proteins and fats until you are completely painfree. When you're better, your doctor may suggest treatment to prevent future pancreatitis (such as gallbladder removal). Avoid alcohol forever. Get immediate treatment for any future episodes. Contact your doctor at once or return here if you have increasing pain, shortness of breath, general swelling, increasing size of the abdomen, continued vomiting, muscle spasms, or other new symptoms. Prescriptions: Ondansetron [Zofran Odt 4 mg Tablet] 1 - 2 tab PO Q4H PRN #15 tab.rapdis PRN Reason: For Nausea/Vomiting Oxycodone HCl [Oxycodone HCl 10 MG Tablet] 1 - 2 tab PO Q6H PRN #15 tablet PRN Reason: PAIN
[2017-11-17 09:07] LABS: HEMATOCRIT 30.3 % (37.9-51.0); HEMOGLOBIN 9.9 g/dL (13.5-17.0); MEAN CORPUSCULAR HEMOGLOBIN 26.4 pg (27.0-33.4); MEAN CORPUSCULAR HGB CONC 32.6 g/dL (32.0-36.0); MEAN CORPUSCULAR VOLUME 81 fl (80-97); PLATELET COUNT 648 10^3/uL (150-450); RED BLOOD COUNT 3.75 10^6/uL (4.35-5.55); RED CELL DISTRIBUTION WIDTH 18.2 % (11.5-14.0); WHITE BLOOD COUNT 23.7 10^3/uL (4.0-10.5)
[2017-11-17] MEDS ORDERED: HYDROMORPHONE HCL INJ/PF 2 MG/ML AMPULE IV ONE (09:08)
[2017-11-17 09:22] LABS: ALANINE AMINOTRANSFERASE 30 U/L (21-72); ALBUMIN 3.6 g/dL (3.5-5.0); ALKALINE PHOSPHATASE 155 U/L (38-126); ANION GAP 16 (5-19); ASPARTATE AMINO TRANSFERASE 15 U/L (17-59); BILIRUBIN,DIRECT 0.6 mg/dL (0.0-0.4); BILIRUBIN,TOTAL 1.4 mg/dL (0.2-1.3); BLOOD UREA NITROGEN 20 mg/dL (7-20); CALCIUM 9.6 mg/dL (8.4-10.2); CARBON DIOXIDE 27 mmol/L (22-30); CHLORIDE 98 mmol/L (98-107); GLUCOSE 155 mg/dL (75-110); POTASSIUM 4.4 mmol/L (3.6-5.0); SODIUM 140.5 mmol/L (137-145); TOTAL PROTEIN 7.6 g/dL (6.3-8.2)
[2017-11-17 09:38] LABS: ABSOLUTE MONOCYTES # (MANUAL) 1.4 10^3/uL (0.1-1.4); ABSOLUTE NEUTROPHILS# (MANUAL) 18.2 10^3/uL (1.7-8.2); ANISOCYTOSIS 2+; BASOPHILS % (MANUAL) 0 % (0-2); EOSINOPHILS % (MANUAL) 0 % (0-6); INTERNATIONAL RATION (INR) 1.22; LYMPHOCYTES % (MANUAL) 17 % (13-45); MONOCYTES % (MANUAL) 6 % (3-13); PLATELET COMMENT INCREASED; POLYCHROMASIA SLIGHT; PROTHROMBIN TIME 16.1 SEC (11.4-15.4); SEGMENTED NEUTROPHILS % (MAN) 77 % (42-78); TOTAL CELLS COUNTED 100; TOXIC GRANULATION SLIGHT; TOXIC VACUOLATION PRESENT
[2017-11-17 09:39] LABS: PARTIAL THROMBOPLASTIN TIME 38.1 SEC (23.5-35.8)
[2017-11-17 10:00] LABS: APPEARANCE,URINE SLIGHTLY-CLOUDY; BILIRUBIN,URINE SMALL (NEGATIVE); COLOR,URINE AMBER; GLUCOSE, URINE NEGATIVE (NEGATIVE); KETONES,URINE NEGATIVE (NEGATIVE); LEUKOCYTE ESTERASE,URINE NEGATIVE (NEGATIVE); NITRITE,URINE NEGATIVE (NEGATIVE); PROTEIN,URINE 100 mg/dL (NEGATIVE); URINE SPECIFIC GRAVITY 1.036
--- NOTE | 2017-11-17 10:15 | RADIOLOGY REPORT (SQ) ---
EXAM DESCRIPTION: CHEST SINGLE VIEW COMPLETED DATE/TIME: 11/17/2017 10:04 am REASON FOR STUDY: sob COMPARISON: CT angio chest 08/28/2017 Chest films 10/10/2017 EXAM PARAMETERS: NUMBER OF VIEWS: One view. TECHNIQUE: Single frontal radiographic view of the chest acquired. RADIATION DOSE: NA LIMITATIONS: None. FINDINGS: LUNGS AND PLEURA: No opacities, masses or pneumothorax. No pleural effusion. MEDIASTINUM AND HILAR STRUCTURES: No masses. Contour normal. HEART AND VASCULAR STRUCTURES: Heart normal in size. Normal vasculature. BONES: No acute findings. HARDWARE: None in the chest. OTHER: No other significant finding. IMPRESSION: NO ACUTE RADIOGRAPHIC FINDING IN THE CHEST. TECHNICAL DOCUMENTATION: JOB ID: [id number] [employer]- All Rights Reserved Reading location - IP/workstation name: [email or web address]
--- NOTE | 2017-11-17 10:36 | RADIOLOGY REPORT (SQ) ---
EXAM DESCRIPTION: CT ABD/PELVIS WITH IV ONLY COMPLETED DATE/TIME: 11/17/2017 10:05 am REASON FOR STUDY: Recent hemorrhagic pancreatitis with worsening abd COMPARISON: CT abdomen pelvis 10/10/2017, 09/13/2016 TECHNIQUE: CT scan of the abdomen and pelvis performed using helical scanning technique with dynamic intravenous contrast injection. No oral contrast. Images reviewed with lung, soft tissue, and bone windows. Reconstructed coronal and sagittal MPR images reviewed. Delayed images for evaluation of the urinary system also acquired. All images stored on PACS. All CT scanners at this facility use dose modulation, iterative reconstruction, and/or weight based d osing when appropriate to reduce radiation dose to as low as reasonably achievable (ALARA). [facility]: Dose Right [facility]: CareDose [facility]: Dose Right [facility]: Teradose 4D [facility]: [employer] CONTRAST TYPE AND DOSE: contrast/concentration: Isovue 370.00 mg/ml; Total Contrast Delivered: 64.0 ml; Total Saline Delivered: 65.0 ml RENAL FUNCTION: Creatinine 0.85 RADIATION DOSE: CT Rad equipment meets quality standard of care and radiation dose reduction techniq ues were employed. CTDIvol: 5.2 - 6.7 mGy. DLP: 637 mGy-cm.. LIMITATIONS: None. FINDINGS: In September 2017, the patient has acute peripancreatic hemorrhage treated with endovascular e mbolization. There are faintly radiopaque embolization coils in the mid epigastrium on axial image 3 0. There is a fluid collection in the lesser sac measuring near water density likely a pancreatic pseudo cyst or liquified hematoma. This measures 6 cm AP x 10.5 cm transverse by 7.5 cm craniocaudad, best shown on axial image 30 and coronal image 34. There is a left lower quadrant pseudocyst, 5 cm transverse by 4 cm AP x 6 cm craniocaudad, best shown on axial image 49 and coronal image 34. There is a rind of fluid surrounding the left kidney in the left. Renal space with very mild flatten ing of the dorsal aspect left kidney. A pigtail catheter is present in the inferior aspect of the le ft. Renal fluid. Fluid measures less than 2 cm in thickness around the periphery of the left kidney . These findings were discussed with Dr. Dawn in the emergency room. LOWER CHEST: No significant findings. No nodules or infiltrates. LIVER: Normal size. No masses. No dilated ducts. Recannulized umbilical vein SPLEEN: Normal size. No focal lesions. 13 cm in length. Multiple left upper quadrant splenic hilum vascular collaterals. PANCREAS: Pancreatic head neck and proximal body are unremarkable. Pancreatic tail not visualized. Lesser sac fluid collection as above. GALLBLADDER: No identified stones by CT criteria. No inflammatory changes to suggest cholecystitis. ADRENAL GLANDS: No significant masses or asymmetry. RIGHT KIDNEY AND URETER: No solid masses. No significant calcifications. No hydronephrosis or hyd roureter. LEFT KIDNEY AND URETER: No solid masses. No significant calcifications. No hydronephrosis or hydr oureter. Perinephric fluid/phlegmon is decreased compared to previous exams, with the pigtail cathet er along the periphery, dorsal left lower pole kidney AORTA AND VESSELS: No aneurysm. No dissection. Renal arteries, SMA, celiac without stenosis. RETROPERITONEUM: No retroperitoneal adenopathy, hemorrhage or masses. BOWEL AND PERITONEAL CAVITY: No masses or inflammatory changes. No free fluid or peritoneal masses. APPENDIX: Normal. PELVIS: No mass. No free fluid. Normal bladder. ABDOMINAL WALL: No masses. No hernias. 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 IMPRESSION: Large lesser sac fluid collection, smaller left lower quadrant fluid collection worrisom e for pseudocysts. Decrease in left perinephric fluid compared to previous studies. TECHNICAL DOCUMENTATION: JOB ID: [id number] Quality ID # [id number]: Final reports with documentation of one or more dose reduction techniques (e.g., Au tomated exposure control, adjustment of the mA and/or kV according to patient size, use of iterative reconstruction technique) 2010 [employer]- All Rights Reserved Reading location - IP/workstation name: [facility] [place]
[2017-11-17] MEDS ORDERED: CEFOXITIN 1 GM/D5W RTU 1 GM/50 ML RTUPB IV SCH (10:45)
[2017-11-17] MEDS ORDERED: FENTANYL CITRATE INJ/PF 100 MCG/2 ML AMPUL IV ONE (11:15)
[2017-11-17] MEDS ORDERED: CEFOXITIN INJ 1 GM VIAL IV ONE (11:30)
[2017-11-17] MEDS ORDERED: OXYCODONE-ACETAMINOPHEN 5-325 MG TABLET PO ONE (12:01)
[2017-11-17 12:34] VITALS: BP 117/76
--- NOTE | 2017-11-17 21:28 | EKG REPORT ---
SEVERITY:- ABNORMAL ECG - SINUS TACHYCARDIA : Confirmed by: Darryl Rodas 17-Nov-2017 21:27:42
== END 2017-11-17 12:35 | disposition left against medical advice (07) ==
LOC: ER 08:10
DX: K85.90 Acute pancreatitis without necrosis or infection, unspecified (principal); T47.5X6A Underdosing of digestants, initial encounter; Z91.128 Patient's intentional underdosing of medication regimen for other reason; Z91.14 Patient's other noncompliance with medication regimen; K86.1 Other chronic pancreatitis; K86.3 Pseudocyst of pancreas; R00.0 Tachycardia, unspecified; R06.02 Shortness of breath; R10.9 Unspecified abdominal pain; M54.9 Dorsalgia, unspecified; R10.816 Epigastric abdominal tenderness; Z98.890 Other specified postprocedural states; Z90.411 Acquired partial absence of pancreas; Z53.29 Procedure and treatment not carried out because of patient's decision for other reasons
CPT/HCPCS: 93005; 99291; 96361; 96375; 96365; 36415; 87040; 83690; 85025; 85610; 85730; 80053; 81001; 83605; 71045; 74177; 93010; J3010; J1170; J7030

== ENCOUNTER 2017-11-20 06:54 | Emergency (ER) | payer OTHER ==
[2017-11-20] MEDS ORDERED: MORPHINE SULFATE 10 MG/ML INJ IV ONE (07:17)
[2017-11-20] MEDS ORDERED: NORMAL SALINE 1000 ML 1,000 ML IV ONE (07:17)
--- NOTE | 2017-11-20 07:24 | ER Document Report ---
ED General - General Chief Complaint: Abdominal Pain Stated Complaint: ABDOMINAL PAIN Time Seen by Provider: 11/20/17 07:08 TRAVEL OUTSIDE OF THE [place] IN LAST 30 DAYS: No - HPI Notes: 31-year-old male with a complicated history of necrotizing pancreatitis status post subsequent surgery and drain placement at [facility]. Of note, he was here 2 days ago with a similar presentation, had a workup including CT imaging which showed concerning fluid collections and leukocytosis , had been posted for transfer to [facility] but then left AMA because of family issues. He states over the next day his pain had improved. But then now has come back. Describes severe sharp and achy pain in his epigastric and left upper quadrant region with a patellar component throughout his entire abdomen. Nausea no vomiting. Decreased p.o. fluid intake. No diarrhea. No other modifying factors, no other associated symptoms, no other provocative or palliative factors. He indicates his left-sided drain output has been the same. - Related Data Allergies/Adverse Reactions: No Known Allergies Allergy (Verified 11/17/17 09:03) Past Medical History - General Information source: Patient - Social History Smoking Status: Smoker,Current Status Unk Frequency of alcohol use: None Family History: Reviewed & Not Pertinent - Medical History Notes: Includes a history of necrotizing pancreatitis, pigtail drain in the left side in place. Renal/ Medical History: Denies: Hx Peritoneal Dialysis GI Medical History: Reports: Hx Pancreatitis - Necrotizing Past Surgical History: Reports: Hx Abdominal Surgery - Multiple abdominal abscesses, Hx Pancreatic Surgery - Removal secondary to necrotizing pancreatitis Review of Systems - Review of Systems Notes: Review of systems as in the history of present illness, otherwise negative. Physical Exam - Vital signs Vitals: Temp Pulse Resp BP Pulse Ox 98.2 F 133 H 20 136/82 H 99 11/20/17 06:58 11/20/17 06:58 11/20/17 06:58 11/20/17 06:58 11/20/17 06:58 - Notes Notes: General: Well developed . Moderate distress. HEENT: Normocephalic, atraumatic. Pupils equal round reactive to light. No JVD. Dry mucosa Chest: No trauma. Respiratory: Good air exchange, normal excursion. Cardiac: Regular rhythm. No murmurs or gallops. Tachycardic Abdomen: Nondistended, well-healed surgical scars are noted, ventral hernia noted superiorly. He has diffuse tenderness with more pronounced tenderness in the epigastric and left upper quadrant region. Back: No asymmetry or gross abnormality. Motor: Grossly normal power and tone. Neurologic: Alert, nonfocal. Cranial nerves II-12 are intact. Sensation intact. Vascular: Well perfused. Normal peripheral pulses. Skin: No petechiae or purpura. Course - Re-evaluation Re-evalutation: 11/20/17 07:23 31-year-old male with a complicated intra-abdominal history. I have reviewed his records including his evaluation in the ED from 2 days ago. Of note, the CT scan at that time showed multiple concerning fluid collections. At this point I am going to repeat labs, check cultures, IV volume resuscitate, treat pain. Patient will need to be transferred again for definitive care and evaluation. 11/20/17 09:01 Labs reviewed, CBC is actually normalized compared to previous. LFTs and chemistries are unremarkable. Lipase is decreased substantially. Patient did indicate that he had his left flank drain put in in [facility] in the end of September. Case was initially discussed with Dr. ZEE, on-call surgeon at [facility]. She requested transfer to the ED for evaluation. Patient was accepted by Dr. Rodrigues from the emergency department. We will continue with IV crystalloid, keep n.p.o., continue pain medication. Patient be transferred for evaluation of possible operative or IR drainage of his complicated fluid collections. 11/20/17 11:38 Patient is done well throughout his course. He is excepted in the emergency department at [facility]. He is reevaluated prior to transfer, is required some additional pain medicine, but otherwise remains adequate stable for transfer. - Vital Signs Vital signs: Temp Pulse Resp BP Pulse Ox 98.2 F 133 H 16 129/87 H 97 11/20/17 06:58 11/20/17 06:58 11/20/17 10:59 11/20/17 07:13 11/20/17 10:59 - Laboratory Result Diagrams: 11/20/17 07:35 11/20/17 07:35 Laboratory results interpreted by me: 11/20/17 11/20/17 11/20/17 07:35 07:35 08:10 RBC 3.16 L Hgb 8.2 L Hct 25.2 L MCH 25.8 L RDW 18.5 H Plt Count 563 H Glucose 129 H AST 14 L Albumin 2.9 L Lipase 509.6 H Urine Urobilinogen 4.0 H Discharge - Discharge Clinical Impression: Intra-abdominal abscess Condition: Serious Disposition: [place]
[2017-11-20] MEDS ORDERED: HYDROMORPHONE HCL INJ/PF 2 MG/ML AMPULE ONE (07:49)
[2017-11-20] MEDS ORDERED: HYDROMORPHONE HCL INJ/PF 2 MG/ML AMPULE IV ONE ×3 (07:51→11:37)
[2017-11-20 07:54] LABS: ABSOLUTE EOSINOPHILS # (AUTO) 0.1 10^3/uL (0.0-0.6); ABSOLUTE LYMPHOCYTES (AUTO) 1.4 10^3/uL (0.5-4.7); ABSOLUTE MONOCYTES (AUTO) 0.6 10^3/uL (0.1-1.4); ABSOLUTE NEUT (AUTO) 7.6 10^3/uL (1.7-8.2); BASOPHILS % (AUTO) 0.5 % (0-2); EOSINOPHILS % (AUTO) 0.8 % (0-6); HEMATOCRIT 25.2 % (37.9-51.0); HEMOGLOBIN 8.2 g/dL (13.5-17.0); LYMPHOCYTES % (AUTO) 14.6 % (13-45); MEAN CORPUSCULAR HEMOGLOBIN 25.8 pg (27.0-33.4); MEAN CORPUSCULAR HGB CONC 32.4 g/dL (32.0-36.0); MEAN CORPUSCULAR VOLUME 80 fl (80-97); MONOCYTES % (AUTO) 6.2 % (3-13); PLATELET COUNT 563 10^3/uL (150-450); RED BLOOD COUNT 3.16 10^6/uL (4.35-5.55); RED CELL DISTRIBUTION WIDTH 18.5 % (11.5-14.0); SEGMENTED NEUTROPHILS % (AUTO) 77.9 % (42-78); TOTAL CELLS COUNTED % (AUTO) 100 %; WHITE BLOOD COUNT 9.7 10^3/uL (4.0-10.5)
[2017-11-20 08:09] LABS: ALANINE AMINOTRANSFERASE 22 U/L (21-72); ALBUMIN 2.9 g/dL (3.5-5.0); ALKALINE PHOSPHATASE 116 U/L (38-126); ANION GAP 12 (5-19); ASPARTATE AMINO TRANSFERASE 14 U/L (17-59); BILIRUBIN,DIRECT 0.3 mg/dL (0.0-0.4); BILIRUBIN,TOTAL 0.3 mg/dL (0.2-1.3); BLOOD UREA NITROGEN 16 mg/dL (7-20); CALCIUM 9.1 mg/dL (8.4-10.2); CARBON DIOXIDE 29 mmol/L (22-30); CHLORIDE 101 mmol/L (98-107); GLUCOSE 129 mg/dL (75-110); LIPASE 509.6 U/L (23-300); POTASSIUM 4.3 mmol/L (3.6-5.0); SODIUM 141.8 mmol/L (137-145); TOTAL PROTEIN 6.6 g/dL (6.3-8.2)
[2017-11-20 08:13] VITALS: BP 129/87
[2017-11-20 08:31] LABS: APPEARANCE,URINE CLEAR; BILIRUBIN,URINE NEGATIVE (NEGATIVE); COLOR,URINE YELLOW; GLUCOSE, URINE NEGATIVE (NEGATIVE); KETONES,URINE NEGATIVE (NEGATIVE); LEUKOCYTE ESTERASE,URINE NEGATIVE (NEGATIVE); NITRITE,URINE NEGATIVE (NEGATIVE); PROTEIN,URINE NEGATIVE (NEGATIVE); URINE SPECIFIC GRAVITY 1.019
== END 2017-11-20 12:38 | disposition short-term general hospital (02) ==
LOC: ER 06:54
DX: K65.1 Peritoneal abscess (principal); K43.9 Ventral hernia without obstruction or gangrene; R10.13 Epigastric pain; R10.12 Left upper quadrant pain; R10.817 Generalized abdominal tenderness; R11.0 Nausea; Z87.19 Personal history of other diseases of the digestive system; Z98.890 Other specified postprocedural states
CPT/HCPCS: 96376; 99285; 96361; 96374; 36415; 87040; 83690; 85025; 80053; 81001; J1170; J7030

== ENCOUNTER 2020-06-10 10:27 | Inpatient (IN) | payer OTHER ==
[2020-06-10] MEDS ORDERED: NORMAL SALINE 1000 ML 1,000 ML IV ONE ×4 (11:54→15:30)
--- NOTE | 2020-06-10 11:55 | RADIOLOGY REPORT (SQ) ---
EXAM DESCRIPTION: CHEST SINGLE VIEW IMAGES COMPLETED DATE/TIME: 06/10/2020 11:37 am REASON FOR STUDY: SOB COMPARISON: None. EXAM PARAMETERS: NUMBER OF VIEWS: One view. TECHNIQUE: Single frontal radiographic view of the chest acquired. RADIATION DOSE: NA LIMITATIONS: None. FINDINGS: LUNGS AND PLEURA: No opacities, masses or pneumothorax. No pleural effusion. MEDIASTINUM AND HILAR STRUCTURES: No masses. Contour normal. HEART AND VASCULAR STRUCTURES: Heart normal in size. Normal vasculature. BONES: No acute findings. HARDWARE: None in the chest. OTHER: No other significant finding. IMPRESSION: NO ACUTE RADIOGRAPHIC FINDING IN THE CHEST. TECHNICAL DOCUMENTATION: JOB ID: [id number] 2010 [employer]- All Rights Reserved Reading location - IP/workstation name: [email or web address]
[2020-06-10 12:14] LABS: HEMATOCRIT 50.4 % (37.9-51.0); HEMOGLOBIN 15.7 g/dL (13.5-17.0); MEAN CORPUSCULAR HEMOGLOBIN 29.8 pg (27.0-33.4); MEAN CORPUSCULAR HGB CONC 31.2 g/dL (32.0-36.0); MEAN CORPUSCULAR VOLUME 96 fl (80-97); PLATELET COUNT 446 10^3/uL (150-450); RED BLOOD COUNT 5.26 10^6/uL (4.35-5.55); RED CELL DISTRIBUTION WIDTH 14.7 % (11.5-14.0); WHITE BLOOD COUNT 21.7 10^3/uL (4.0-10.5)
--- NOTE | 2020-06-10 12:26 | ER Document Report ---
ED General - General Chief Complaint: High Blood Sugar Stated Complaint: SHORTNESS OF BREATH, VOMITING, COUGHING, CHILLS Time Seen by Provider: 06/10/20 12:26 TRAVEL OUTSIDE OF THE [place] IN LAST 30 DAYS: No - HPI Notes: 34-year-old male with past medical history for necrotizing pancreatitis with insulin-dependent diabetes to the emergency department with complaints of shortness of breath, body aches for the past 3 days. He states he feels really badly. He states that he has had nausea but no vomiting. He denies any abdominal pain. Here in the emergency department his POC glucose is 550. He does admit that he has not been taking his insulin as he usually does. He states that his blood sugar has been running in the 50s so he held his insulin. He denies any chills but does admit to subjective fevers. He denies any possible COVID-19 contacts. The patient was evaluated during the global COVID 19 pandemic, and that diagnosis was suspected/considered upon their initial presentation. Their evaluation, treatment, and testing was consistent with current guidelines for patients who present with complaints or symptoms that may be related to COVID-19. - Related Data Allergies/Adverse Reactions: No Known Allergies Allergy (Verified 06/10/20 11:02) Home Medications: insulin Past Medical History - General Information source: Patient - Social History Smoking Status: Former Smoker Frequency of alcohol use: Former heavy drinker Drug Abuse: None Family History: Reviewed & Not Pertinent Patient has homicidal ideation: No Renal/ Medical History: Denies: Hx Peritoneal Dialysis GI Medical History: Reports: Hx Pancreatitis - Necrotizing Past Surgical History: Reports: Hx Abdominal Surgery - Multiple abdominal abscesses, Hx Pancreatic Surgery - Removal secondary to necrotizing pancreatitis Review of Systems - Review of Systems Constitutional: denies: Chills, Fever EENT: No symptoms reported Cardiovascular: denies: Chest pain, Palpitations, Heart racing, Orthopnea, Dyspnea, Syncope, Dizziness, Lightheaded Respiratory: Cough, Short of breath Gastrointestinal: Nausea. denies: Abdominal pain, Diarrhea, Vomiting Genitourinary: No symptoms reported. denies: Frequency, Flank pain, Hematuria Musculoskeletal: No symptoms reported Skin: No symptoms reported Hematologic/Lymphatic: No symptoms reported Neurological/Psychological: No symptoms reported -: Yes All other systems reviewed and negative Physical Exam - Vital signs Vitals: Pulse Resp BP Pulse Ox 115 H 22 H 126/69 H 100 06/10/20 10:50 06/10/20 10:50 06/10/20 10:50 06/10/20 10:50 Interpretation: Normal - General Notes: Patient appears to be acutely ill. He is not in respiratory distress but is tachypneic. He seems slightly confused as well. Sometimes he has difficulty telling me his history of present illness. Initially he told me that he had stopped taking his insulin because his blood sugar was too low but then he changed his story and told me it was too high. He is oriented to person, place, time, circumstances - HEENT Head: Normocephalic, Atraumatic Eyes: Normal Pupils: PERRL Neck: Normal, Supple. No: Lymphadenopathy - Respiratory Respiratory status: No respiratory distress, Tachypnea Chest status: Nontender Breath sounds: Normal. No: Rales, Rhonchi, Wheezing Chest palpation: Normal - Cardiovascular Rhythm: Regular Heart sounds: Normal auscultation Murmur: No Notes: No pitting edema - Abdominal Inspection: Normal Distension: No distension Bowel sounds: Normal Tenderness: Nontender. No: Tender, McBurney's point, Szymanski's sign, Guarding, Rebound Organomegaly: No organomegaly - Back Back: Normal, Nontender. No: CVA tenderness - Neurological Neuro grossly intact: Yes Cognition: Normal Orientation: AAOx4 Michael Coma Scale Eye Opening: Spontaneous Michael Coma Scale Verbal: Oriented [place] Coma Scale Motor: Obeys Commands Michael Coma Scale Total: 15 Speech: Normal Cranial nerves: Normal Cerebellar coordination: Normal Motor strength normal: LUE, RUE, LLE, RLE Additional motor exam normals: Equal meat puller Sensory: Normal - Psychological Associated symptoms: Normal affect, Normal mood - Skin Skin Temperature: Warm Skin Moisture: Dry Skin Color: Normal Course - Re-evaluation Re-evalutation: 06/10/20 Patient noted to be in significant diabetic ketoacidosis. His bicarb is less than 5. He does meet admission criteria for ICU. I did speak with my ER attending Dr. Loera about the patient. She is aware that I started an insulin drip. We will discuss whether or not bicarb should be an option for this patient if his venous pH is lower than 6.9. Patient is on his second liter of fluid. Spoke with Dr. Lopez, manager statistics. He accepts the patient to his service for ICU admission. He went and saw the patient. We talked about the bicarb since his venous pH was 6.8. He does not want me to get bicarb. He would like for the patient to continue to have normal saline. He is aware that the patient has had 2 L and he would like a third normal saline. Impression: Diabetic ketoacidosis with significantly low bicarb level. He has a venous pH of 6.8. He will be admitted to the ICU. I performed 68 minutes of critical care on the patient to include consultations and interviewing the patient. Critical care time should be added to this patient due to the severity of his diabetic ketoacidosis which requires intensive care unit admission. 06/10/20 16:25 Noted repeat basic metabolic panel after first hour on the insulin drip and getting second full liter of fluids. There is improvement of the hyperkalemia. Potassium level is now down to 5.2. Blood sugar is also trending down nicely. However patient still has a significant bicarb level of less than 5. - Vital Signs Vital signs: Temp Pulse Resp BP Pulse Ox 97.0 F 115 H 22 H 126/69 H 100 06/10/20 14:08 06/10/20 10:50 06/10/20 10:50 06/10/20 10:50 06/10/20 10:50 - Laboratory Result Diagrams: 06/10/20 11:54 06/10/20 14:30 Laboratory results interpreted by me: 06/10/20 06/10/20 06/10/20 11:00 11:54 11:54 WBC 21.7 H MCHC 31.2 L RDW 14.7 H Band Neutrophils % 7 H Abs Neuts (Manual) 16.7 H VBG pH VBG pCO2 VBG HCO3 Sodium 132.4 L Potassium 6.3 H* Chloride 97 L Carbon Dioxide < 5 L* Creatinine 1.57 H Est GFR (MDRD) Non-Af 50 L Glucose 651 H* POC Glucose > 550 H* Calcium 10.4 H Alkaline Phosphatase 268 H 06/10/20 06/10/20 06/10/20 12:51 13:27 14:23 WBC MCHC RDW Band Neutrophils % Abs Neuts (Manual) VBG pH 6.89 L* VBG pCO2 19.2 L* VBG HCO3 3.6 L Sodium Potassium Chloride Carbon Dioxide Creatinine Est GFR (MDRD) Non-Af Glucose POC Glucose > 550 H* 471 H* Calcium Alkaline Phosphatase 06/10/20 14:30 WBC MCHC RDW Band Neutrophils % Abs Neuts (Manual) VBG pH VBG pCO2 VBG HCO3 Sodium 134.5 L Potassium 5.2 H D Chloride Carbon Dioxide < 5 L* Creatinine 1.27 H Est GFR (MDRD) Non-Af Glucose 519 H* POC Glucose Calcium Alkaline Phosphatase - Diagnostic Test Radiology reviewed: Image reviewed, Reports reviewed - EKG Interpretation by Me Additional EKG results interpreted by me: 06/10/20 Rate: 106 Rhythm: Sinus tachycardia Interpretation: No STEMI, no diffuse peaked T waves, borderline prolonged QT at 489. Not particularly changed from past comparisons in 2018 Discharge - Discharge Clinical Impression: Diabetic keto-acidosis Qualifiers: Diabetes mellitus type: type 2 Diabetes mellitus complication detail: without coma Qualified Code(s): E11.10 - Type 2 diabetes mellitus with ketoacidosis without coma Condition: Critical Disposition: ADMITTED INPATIENT Admitting Provider: John (Staff Command And Control Officer) Unit Admitted: ICU
[2020-06-10 12:41] LABS: ALBUMIN 4.8 g/dL (3.5-5.0); ALKALINE PHOSPHATASE 268 U/L (38-126); ASPARTATE AMINO TRANSFERASE 18 U/L (17-59); BILIRUBIN,DIRECT 0.3 mg/dL (0.0-0.4); BILIRUBIN,TOTAL 0.5 mg/dL (0.2-1.3); BLOOD UREA NITROGEN 18 mg/dL (7-20); CALCIUM 10.4 mg/dL (8.4-10.2); CHLORIDE 97 mmol/L (98-107)
[2020-06-10 12:55] LABS: GLUCOSE 651 mg/dL (75-110)
[2020-06-10] MEDS ORDERED: GLUCAGON,HUMAN RECOMB 1 MG INJ IM PRN ×2 (12:55→15:13)
[2020-06-10] MEDS ORDERED: DEXTROSE 40% GEL 15 GM TUBE PO PRN ×4 (12:55→15:13)
[2020-06-10] MEDS ORDERED: NORMAL SALINE 100 ML with INSULIN REGULAR, HUMAN 100 UNIT IV PRN ×2 (12:55)
[2020-06-10] MEDS ORDERED: DEXTROSE 50%-WATER 25 GM/50 ML DISP.SYRIN IV PRN ×4 (12:55→15:13)
[2020-06-10 12:56] LABS: CARBON DIOXIDE < 5 mmol/L (22-30); POTASSIUM 6.3 mmol/L (3.6-5.0)
[2020-06-10 12:59] LABS: ABSOLUTE LYMPHOCYTES# (MANUAL) 4.3 10^3/uL (0.5-4.7); ABSOLUTE MONOCYTES # (MANUAL) 0.7 10^3/uL (0.1-1.4); ANISOCYTOSIS 1+; BAND NEUTROPHILS % (MANUAL) 7 % (3-5); BASOPHILS % (MANUAL) 0 % (0-2); BURR CELLS SLIGHT; EOSINOPHILS % (MANUAL) 0 % (0-6); LYMPHOCYTES % (MANUAL) 20 % (13-45); MONOCYTES % (MANUAL) 3 % (3-13); PLATELET CLUMPS PRESENT; PLATELET COMMENT ADEQUATE; SEGMENTED NEUTROPHILS % (MAN) 70 % (42-78); TOTAL CELLS COUNTED 100
[2020-06-10] MEDS ORDERED: INSULIN REG, HUMAN 100 UNIT/ML 3 ML VIAL (PYX) ONE ×2 (13:02→18:17)
[2020-06-10 13:41] LABS: VENOUS BLOOD BASE EXCESS -28.6 mmol/L; VENOUS BLOOD HCO3 3.6 mmol/L (20-32)
[2020-06-10 13:44] LABS: VENOUS BLOOD PCO2 19.2 mmHg (35-63); VENOUS BLOOD PH 6.89 (7.30-7.42)
[2020-06-10] MEDS ORDERED: ACETAMINOPHEN 325 MG TABLET PO PRN (15:09)
[2020-06-10] MEDS ORDERED: ALBUTEROL SULFATE HFA (90 MCG/PUFF) 8 GM MDI (1 MDI/ER DISP) IH PRN (15:13)
[2020-06-10] MEDS ORDERED: ALBUTEROL SULFATE HFA (90 MCG/PUFF) 8 GM MDI IH PRN (15:23)
[2020-06-10 15:27] LABS: BLOOD UREA NITROGEN 19 mg/dL (7-20); CALCIUM 8.6 mg/dL (8.4-10.2); CHLORIDE 107 mmol/L (98-107)
[2020-06-10 15:40] LABS: CARBON DIOXIDE < 5 mmol/L (22-30); GLUCOSE 519 mg/dL (75-110)
--- NOTE | 2020-06-10 15:41 | CRITICAL CARE ADMISSION REPORT ---
HPI Date:: 06/10/20 Time:: 15:00 Reason for ICU Reason:: DKA with pH < 7 Admission Date/Time & PCP: Admission Date/Time: 06/10/20 15:06 Primary Care Provider: [place] RAVEN HPI: This patient is a 34 yo man with DM-1 who has never been in DKA he says. He stopped taking insulin about 2 days ago becuase hid BG was in the 50s. He has felt badly for about 2 days with fatigue, much urine output. He comes to the ED with BG > 600 and a VBG showing a pH 6.89 and a bicarb < 5. He looks sick but is awake, alert and talking. Very dehydrated with dry teeth. He has had 2 L NS and obviously needs more. He also has a high WBC and K of 6.3 which should come down with treatment. History obtained from:: Patient and ROBY Pretty - Diagnosis/Plan (1) Diabetic keto-acidosis Qualifiers: Diabetes mellitus type: type 2 Diabetes mellitus complication detail: without coma Qualified Code(s): E11.10 - Type 2 diabetes mellitus with ketoacidosis without coma Is this a current diagnosis for this admission?: Yes Plan: Plan on volume loading, insulin drip for sugars. When pH is comfortably above 7, plan to downgrade. Plan Summary: Insulin drip protocol, no bicarb. Past Medical History Endocrine Medical History: Reports: Diabetes Mellitus Type 1 Social/Family History - Social History Lives with: Alone Smoking Status: Former Smoker Frequency of Alcohol Use: None - Medication/Allergies Home Medications: Albuterol Sulfate [Albuterol Sulfate Hfa] 2 puff IH Q4HP PRN 06/10/20 Allergies/Adverse Reactions: No Known Allergies Allergy (Verified 06/10/20 11:02) Review of Systems Constitutional: PRESENT: anorexia, fatigue, weakness Eyes: ABSENT: visual disturbances Ears: ABSENT: hearing changes Respiratory: ABSENT: cough, hemoptysis Gastrointestinal: PRESENT: nausea Genitourinary: ABSENT: dysuria, hematuria Musculoskeletal: ABSENT: joint swelling Integumentary: ABSENT: rash, wounds Neurological: ABSENT: abnormal gait, abnormal speech, confusion, dizziness, focal weakness, syncope Endocrine: PRESENT: polyuria. ABSENT: cold intolerance, heat intolerance, polydipsia Physical Exam Vital Signs: Temp Pulse Resp BP Pulse Ox 97.0 F 115 H 22 H 126/69 H 100 06/10/20 14:08 06/10/20 10:50 06/10/20 10:50 06/10/20 10:50 06/10/20 10:50 Intake & Output 06/09/20 06/10/20 06/11/20 06:59 06:59 06:59 Intake Total 2003 Balance 2003 Weight 55.8 kg Weight/Height Weight 55.8 kg Height 5 ft 6 in General appearance: PRESENT: no acute distress, thin, well-developed, well-nourished Head exam: PRESENT: atraumatic, normocephalic Eye exam: PRESENT: conjunctiva pink, EOMI, PERRLA. ABSENT: scleral icterus Ear exam: PRESENT: normal external ear exam Mouth exam: PRESENT: dry mucosa, moist, tongue midline Respiratory exam: PRESENT: clear to auscultation simone. ABSENT: rales, rhonchi, wheezes Cardiovascular exam: PRESENT: tachycardia GI/Abdominal exam: PRESENT: normal bowel sounds, soft. ABSENT: distended, guarding, mass, organolmegaly, rebound, tenderness Rectal exam: PRESENT: deferred Extremities exam: PRESENT: full ROM. ABSENT: calf tenderness, clubbing, pedal edema Neurological exam: PRESENT: alert, awake, oriented to person, oriented to place, oriented to time, oriented to situation, CN II-XII grossly intact. ABSENT: motor sensory deficit Psychiatric exam: PRESENT: appropriate affect, normal mood. ABSENT: homicidal ideation, suicidal ideation Skin exam: PRESENT: dry, intact, warm. ABSENT: cyanosis, rash Laboratory/Radiographs Laboratory Results: 06/10/20 11:54 06/10/20 06/10/20 06/10/20 11:54 11:54 12:51 WBC 21.7 H RBC 5.26 Hgb 15.7 Hct 50.4 MCV 96 MCH 29.8 MCHC 31.2 L RDW 14.7 H Plt Count 446 Seg Neutrophils % Not Reportable VBG pH 6.89 L* VBG pCO2 19.2 L* VBG HCO3 3.6 L VBG Base Excess -28.6 Sodium 132.4 L Potassium 6.3 H* Chloride 97 L Carbon Dioxide < 5 L* Anion Gap Not Reportable BUN 18 Creatinine 1.57 H Est GFR ( Amer) > 60 Glucose 651 H* Calcium 10.4 H Total Bilirubin 0.5 AST 18 Alkaline Phosphatase 268 H Total Protein 8.0 Albumin 4.8 Impressions: Chest X-Ray 06/10/20 00:00 IMPRESSION: NO ACUTE RADIOGRAPHIC FINDING IN THE CHEST. All labs, radiographs, diagnostic studies and EKGs were personally reviewed: Yes In addition, reports of radiographic and diagnostic studies were read: Yes Critical Time Critical Time (minutes): 40 -: The care of a critically ill patient is dynamic. This note represents a static moment in the admission process. Orders and treatments may be given simultaneously and urgently, and time is not account maintenance representative of the treatment process. This patient requires Critical Care secondary to life threatening organ or limb dysfunction. Without Critical Care services, the patient is at risk for increased mortality and morbidity.
[2020-06-10 15:47] LABS: POTASSIUM 5.2 mmol/L (3.6-5.0)
[2020-06-10] MEDS: NORMAL SALINE 100 ML with INSULIN REGULAR, HUMAN 100 UNIT IV PRN ×4 (16:45→18:22)
[2020-06-10] MEDS: ENOXAPARIN SODIUM INJ 40 MG/0.4 ML DISP.SYRIN SUBCUT SCH (17:26)
--- NOTE | 2020-06-10 19:36 | EKG REPORT ---
SEVERITY:- BORDERLINE ECG - SINUS TACHYCARDIA BORDERLINE PROLONGED QT INTERVAL : Confirmed by: Rolly Del Valle MD 10-Jun-2020 19:35:33
[2020-06-10 20:32] LABS: APPEARANCE,URINE CLEAR; BILIRUBIN,URINE NEGATIVE (NEGATIVE); COLOR,URINE STRAW; GLUCOSE, URINE >=500 mg/dL (NEGATIVE); KETONES,URINE 80 mg/dL (NEGATIVE); PROTEIN,URINE 30 mg/dL (NEGATIVE); URINE SPECIFIC GRAVITY 1.011; UROBILINOGEN,URINE NEGATIVE mg/dL (<2.0)
[2020-06-10] MEDS: NORMAL SALINE 1000 ML 1,000 ML IV PRN (21:19)
[2020-06-10 22:25] LABS: ALBUMIN 3.5 g/dL (3.5-5.0); ALKALINE PHOSPHATASE 169 U/L (38-126); ANION GAP 12 (5-19); ASPARTATE AMINO TRANSFERASE 15 U/L (17-59); BILIRUBIN,DIRECT 0.2 mg/dL (0.0-0.4); BILIRUBIN,TOTAL 0.4 mg/dL (0.2-1.3); BLOOD UREA NITROGEN 16 mg/dL (7-20); CALCIUM 8.9 mg/dL (8.4-10.2); CHLORIDE 114 mmol/L (98-107); GLUCOSE 170 mg/dL (75-110); TOTAL PROTEIN 6.2 g/dL (6.3-8.2)
[2020-06-10 22:43] LABS: CARBON DIOXIDE 10 mmol/L (22-30); POTASSIUM 4.2 mmol/L (3.6-5.0)
[2020-06-11] MEDS: INSULIN REG, HUMAN 100 UNIT/ML 3 ML VIAL (PYX) SUBCUT SCH ×5 (02:42→23:28)
[2020-06-11] MEDS: NORMAL SALINE 1000 ML 1,000 ML IV PRN (04:00)
[2020-06-11 04:30] LABS: ABSOLUTE LYMPHOCYTES (AUTO) 2.1 10^3/uL (0.5-4.7); BASOPHILS % (AUTO) 0.3 % (0-2); EOSINOPHILS % (AUTO) 0.2 % (0-6); HEMATOCRIT 34.5 % (37.9-51.0); MEAN CORPUSCULAR HEMOGLOBIN 30.3 pg (27.0-33.4); MEAN CORPUSCULAR HGB CONC 34.9 g/dL (32.0-36.0); MONOCYTES % (AUTO) 9.5 % (3-13); PLATELET COUNT 217 10^3/uL (150-450); RED BLOOD COUNT 3.98 10^6/uL (4.35-5.55); RED CELL DISTRIBUTION WIDTH 13.6 % (11.5-14.0); TOTAL CELLS COUNTED % (AUTO) 100 %; WHITE BLOOD COUNT 10.1 10^3/uL (4.0-10.5)
[2020-06-11 04:33] LABS: MEAN CORPUSCULAR VOLUME 87 fl (80-97)
[2020-06-11 04:46] LABS: ANION GAP 13 (5-19); BLOOD UREA NITROGEN 12 mg/dL (7-20); CALCIUM 8.5 mg/dL (8.4-10.2); CHLORIDE 112 mmol/L (98-107); GLUCOSE 171 mg/dL (75-110); POTASSIUM 3.5 mmol/L (3.6-5.0)
[2020-06-11 05:08] LABS: CARBON DIOXIDE 10 mmol/L (22-30)
[2020-06-11] MEDS ORDERED: DEXTROSE 5%-1/2 NORMAL SALINE 1,000 ML with POTASSIUM CHLORIDE 20 MEQ IV PRN ×2 (06:27)
[2020-06-11] MEDS ORDERED: INFLUENZA QUAD (6MOS+) 2020-21 VAC 0.5 ML SYR IM ONE (08:00)
[2020-06-11] MEDS: ENOXAPARIN SODIUM INJ 40 MG/0.4 ML DISP.SYRIN SUBCUT SCH (09:11)
[2020-06-11] MEDS: INSULIN GLARGINE,HUM.REC.ANLOG 1,000 UNIT/10 ML VIAL SUBCUT SCH (09:12)
[2020-06-11 10:18] LABS: BLOOD UREA NITROGEN 12 mg/dL (7-20); CALCIUM 8.4 mg/dL (8.4-10.2); GLUCOSE 323 mg/dL (75-110)
[2020-06-11 10:41] LABS: ANION GAP 14 (5-19); CHLORIDE 108 mmol/L (98-107); POTASSIUM 3.4 mmol/L (3.6-5.0)
[2020-06-11 10:47] LABS: CARBON DIOXIDE 10 mmol/L (22-30)
--- NOTE | 2020-06-11 11:32 | PDOC CRITICAL CARE PROG REPORT ---
General Date:: 06/11/20 ICU Day:: 2 Hospital Day:: 2 Resuscitation Status: Full Code Events in the past 12 to 24 Hours:: DKA improved. Acidosis still present but much improved Review of systems relevant to events:: Endocrine Reason for ICU Addmission:: DKA with pH < 7, now improved - Medications: Medications reviewed and adjusted accordingly: Yes Vasopressors:: None Sedation:: None Physical Exam Vital Signs: Temp Pulse Resp BP Pulse Ox 98.1 F 100 13 105/59 L 100 06/11/20 08:41 06/11/20 08:41 06/11/20 08:41 06/11/20 08:41 06/11/20 08:41 Intake & Output 06/10/20 06/11/20 06/12/20 06:59 06:59 06:59 Intake Total 5155 630 Output Total 680 675 Balance 4475 -45 Weight 56 kg Weight/Height Weight 56 kg Height 5 ft 5 in General appearance: PRESENT: no acute distress Head exam: PRESENT: atraumatic, normocephalic Eye exam: PRESENT: conjunctiva pink, EOMI, PERRLA. ABSENT: scleral icterus Ear exam: PRESENT: normal external ear exam Mouth exam: PRESENT: dry mucosa Neck exam: ABSENT: carotid bruit, JVD, lymphadenopathy, thyromegaly Respiratory exam: PRESENT: clear to auscultation simone. ABSENT: rales, rhonchi, wheezes Cardiovascular exam: PRESENT: RRR, tachycardia - Less so.. ABSENT: diastolic murmur, rubs, systolic murmur GI/Abdominal exam: PRESENT: normal bowel sounds, soft. ABSENT: distended, guarding, mass, organolmegaly, rebound, tenderness Rectal exam: PRESENT: deferred Extremities exam: PRESENT: full ROM. ABSENT: calf tenderness, clubbing, pedal edema Musculoskeletal exam: PRESENT: normal inspection Neurological exam: PRESENT: alert, awake, oriented to person, oriented to place, oriented to time, oriented to situation, CN II-XII grossly intact. ABSENT: motor sensory deficit Psychiatric exam: PRESENT: appropriate affect, normal mood. ABSENT: homicidal ideation, suicidal ideation Skin exam: PRESENT: dry, intact, warm. ABSENT: cyanosis, rash Laboratory/Radiographs Laboratory Results: 06/11/20 04:07 06/11/20 09:52 06/10/20 06/10/2006/10/20 11:54 11:54 12:51 WBC 21.7 H RBC 5.26 Hgb 15.7 Hct 50.4 MCV 96 MCH 29.8 MCHC 31.2 L RDW 14.7 H Plt Count 446 Seg Neutrophils % Not Reportable VBG pH 6.89 L* VBG pCO2 19.2 L* VBG HCO3 3.6 L VBG Base Excess -28.6 Sodium 132.4 L Potassium 6.3 H* Chloride 97 L Carbon Dioxide < 5 L* Anion Gap Not Reportable BUN 18 Creatinine 1.57 H Est GFR ( Amer) > 60 Glucose 651 H* Lactic Acid Calcium 10.4 H Magnesium Total Bilirubin 0.5 AST 18 Alkaline Phosphatase 268 H Total Protein 8.0 Albumin 4.8 Urine Color Urine Appearance Urine pH Ur Specific [place] Urine Protein Urine Glucose (UA) Urine Ketones Urine Blood Urine RBC (Auto) 06/10/20 06/10/20 06/10/20 14:30 20:00 21:54 WBC RBC Hgb Hct MCV MCH MCHC RDW Plt Count Seg Neutrophils % VBG pH VBG pCO2 VBG HCO3 VBG Base Excess Sodium 134.5 L 135.7 L Potassium 5.2 H D 4.2 D Chloride 107 114 H Carbon Dioxide < 5 L* 10 L* Anion Gap Not Reportable 12 BUN 19 16 Creatinine 1.27 H 0.81 Est GFR ( Amer) > 60 > 60 Glucose 519 H* 170 H Lactic Acid Calcium 8.6 8.9 Magnesium 1.9 Total Bilirubin 0.4 AST 15 L Alkaline Phosphatase 169 H Total Protein 6.2 L Albumin 3.5 Urine Color STRAW Urine Appearance CLEAR Urine pH 5.0 Ur Specific [place] 1.011 Urine Protein 30 H Urine Glucose (UA) >=500 H Urine Ketones 80 H Urine Blood SMALL H Urine RBC (Auto) 0 06/10/20 06/11/20 06/11/20 21:54 04:07 04:07 WBC 10.1 RBC 3.98 L Hgb 12.0 L D Hct 34.5 L MCV 87 D MCH 30.3 MCHC 34.9 RDW 13.6 Plt Count 217 Seg Neutrophils % 69.0 VBG pH VBG pCO2 VBG HCO3 VBG Base Excess Sodium 135.2 L Potassium 3.5 L Chloride 112 H Carbon Dioxide 10 L* Anion Gap 13 BUN 12 Creatinine 0.64 Est GFR ( Amer) > 60 Glucose 171 H Lactic Acid 1.7 Calcium 8.5 Magnesium Total Bilirubin AST Alkaline Phosphatase Total Protein Albumin Urine Color Urine Appearance Urine pH Ur Specific [place] Urine Protein Urine Glucose (UA) Urine Ketones Urine Blood Urine RBC (Auto) 06/11/20 09:52 WBC RBC Hgb Hct MCV MCH MCHC RDW Plt Count Seg Neutrophils % VBG pH VBG pCO2 VBG HCO3 VBG Base Excess Sodium 132.3 L Potassium 3.4 L Chloride 108 H Carbon Dioxide 10 L* Anion Gap 14 BUN 12 Creatinine 0.63 Est GFR ( Amer) > 60 Glucose 323 H Lactic Acid Calcium 8.4 Magnesium Total Bilirubin AST Alkaline Phosphatase Total Protein Albumin Urine Color Urine Appearance Urine pH Ur Specific [place] Urine Protein Urine Glucose (UA) Urine Ketones Urine Blood Urine RBC (Auto) Impressions: Chest X-Ray 06/10/20 00:00 IMPRESSION: NO ACUTE RADIOGRAPHIC FINDING IN THE CHEST. EKG: Sinus tachycardia. All labs, radiographs, diagnostic studies and EKGs were personally reviewed: Yes In addition, reports of radiographic and diagnostic studies were read: Yes Assessment and Plan - Diagnosis (1) Diabetic keto-acidosis Qualifiers: Diabetes mellitus type: type 2 Diabetes mellitus complication detail: without coma Qualified Code(s): E11.10 - Type 2 diabetes mellitus with ketoacidosis without coma Is this a current diagnosis for this admission?: Yes Plan: Bicarb 10, anion gap closed feeling a bit better and downgraded to the IMC. Plan Summary: OK to downgrade hope to discharge in a day or two. Critical Time Critical Time (minutes): 25 Level of Care: IMCU Anticipated discharge: Home Anticipated DC Timeframe: within 48 hours -: 1. The care of a critical patient is a dynamic process. This note is a congressional representative synopsis but static in nature. The timeframe for treatments given in order is not necessarily the actual time these treatments may have been done. 2. This patient requires critical care secondary to ongoing requirements for therapy not offered or safe outside the critical care environment. Transfer to a lower level of care will result in altered life or limb morbidity and mortality. 3. Multidisciplinary rounds completed. 4. ABCDE bundle addressed.
[2020-06-11 17:34] LABS: ANION GAP 11 (5-19); BLOOD UREA NITROGEN 8 mg/dL (7-20); CALCIUM 8.5 mg/dL (8.4-10.2); CARBON DIOXIDE 15 mmol/L (22-30); CHLORIDE 106 mmol/L (98-107); GLUCOSE 308 mg/dL (75-110); POTASSIUM 3.3 mmol/L (3.6-5.0)
[2020-06-11 23:01] LABS: ANION GAP 8 (5-19); BLOOD UREA NITROGEN 8 mg/dL (7-20); CALCIUM 8.9 mg/dL (8.4-10.2); CARBON DIOXIDE 21 mmol/L (22-30); CHLORIDE 107 mmol/L (98-107); GLUCOSE 98 mg/dL (75-110)
[2020-06-11 23:19] LABS: POTASSIUM 2.9 mmol/L (3.6-5.0)
[2020-06-11] MEDS ORDERED: POTASSIUM CHLORIDE 10 MEQ TABLET.ER PO ONE (23:22)
[2020-06-12] MEDS: INSULIN REG, HUMAN 100 UNIT/ML 3 ML VIAL (PYX) SUBCUT SCH (05:32)
[2020-06-12 06:57] LABS: ALBUMIN 3.1 g/dL (3.5-5.0); ALKALINE PHOSPHATASE 135 U/L (38-126); ANION GAP 8 (5-19); ASPARTATE AMINO TRANSFERASE 26 U/L (17-59); BILIRUBIN,DIRECT 0.1 mg/dL (0.0-0.4); BILIRUBIN,TOTAL 0.4 mg/dL (0.2-1.3); BLOOD UREA NITROGEN 10 mg/dL (7-20); CALCIUM 8.6 mg/dL (8.4-10.2); CARBON DIOXIDE 21 mmol/L (22-30); CHLORIDE 107 mmol/L (98-107); GLUCOSE 218 mg/dL (75-110); POTASSIUM 3.2 mmol/L (3.6-5.0); TOTAL PROTEIN 5.6 g/dL (6.3-8.2)
--- NOTE | 2020-06-12 07:56 | PDOC DISCHARGE SUMMARY ---
Impression - Admit/DC Date/PCP Admission Date/Primary Care Provider: 06/10/20 15:06 [facility] Discharge Date: 06/12/20 - Discharge Diagnosis (1) Diabetic keto-acidosis Is this a current diagnosis for this admission?: Yes (2) Hypokalemia Is this a current diagnosis for this admission?: Yes - Assessment Summary: This patient is a 34 yo man with type-1 DM who uses an insulin pump at home. He stopped insulin due to BG low in the 50s, but soon developed fatigue, abd pain, nausea and came to the ED. He was found to be in DKA with a bicarb of < 5. BG 620. He was begun on an insulin drip and given several liters of fluid. He came off the drip in less than a day and was downgraded but stayed in the ICU because of a lack of beds. He currently has a diabetic diet. Gap has been closed for a day. His bicarb is in the low 20s and feeling much better. He is stable for discharge and to reuse his pump. Follow up this week with primary physicain. - Additional Information Resuscitation Status: Full Code Discharge Diet: Diabetic Discharge Activity: Activity As Tolerated Referrals: [facility] [Primary Care [facility]] - Follow up as needed Home Medications: Albuterol Sulfate [Albuterol Sulfate Hfa] 2 puff IH Q4HP PRN 06/10/20 History of Present Illiness History of Present Illness: This patient is a 34 yo man with DM-1 who has never been in DKA he says. He stopped taking insulin about 2 days ago becuase hid BG was in the 50s. He has felt badly for about 2 days with fatigue, much urine output. He comes to the ED with BG > 600 and a VBG showing a pH 6.89 and a bicarb < 5. He looks sick but is awake, alert and talking. Very dehydrated with dry teeth. He has had 2 L NS and obviously needs more. He also has a high WBC and K of 6.3 which should come down with treatment. It did and he improved in less than a day. Ready for discharge hospital day 3. Hospital Course Hospital Course: His course has been described. He is slightly hypokalemic as expected. He will get PO potassium and be discharged. Physical Exam Vital Signs: Temp Pulse Resp BP Pulse Ox 97.8 F 82 20 95/62 L 98 11/27/20 04:00 06/12/20 04:00 06/12/20 04:00 06/12/20 04:00 06/12/20 04:00 Intake & Output 06/11/20 06/12/20 06/13/20 06:59 06:59 06:59 Intake Total 5155 2570 Output Total 680 4125 Balance 4475 -1555 Weight 56 kg 61.1 kg General appearance: PRESENT: no acute distress, well-developed, well-nourished Head exam: PRESENT: atraumatic, normocephalic Eye exam: PRESENT: conjunctiva pink, EOMI, PERRLA. ABSENT: scleral icterus Ear exam: PRESENT: normal external ear exam Mouth exam: PRESENT: moist, tongue midline Respiratory exam: PRESENT: clear to auscultation simone. ABSENT: rales, rhonchi, wheezes Cardiovascular exam: PRESENT: RRR. ABSENT: diastolic murmur, rubs, systolic murmur GI/Abdominal exam: PRESENT: normal bowel sounds, soft. ABSENT: distended, guarding, mass, organolmegaly, rebound, tenderness Rectal exam: PRESENT: deferred Extremities exam: PRESENT: full ROM. ABSENT: calf tenderness, clubbing, pedal edema Neurological exam: PRESENT: alert, awake, oriented to person, oriented to place, oriented to time, oriented to situation, CN II-XII grossly intact. ABSENT: motor sensory deficit Psychiatric exam: PRESENT: appropriate affect, normal mood. ABSENT: homicidal ideation, suicidal ideation Skin exam: PRESENT: dry, intact, warm. ABSENT: cyanosis, rash Results Laboratory Results: WBC 10.1 10^3/uL (4.0-10.5) 06/11/20 04:07 RBC 3.98 10^6/uL (4.35-5.55) L 06/11/20 04:07 Hgb 12.0 g/dL (13.5-17.0) L D 06/11/20 04:07 Hct 34.5 % (37.9-51.0) L 06/11/20 04:07 MCV 87 fl (80-97) D 06/11/20 04:07 MCH 30.3 pg (27.0-33.4) 06/11/20 04:07 MCHC 34.9 g/dL (32.0-36.0) 06/11/20 04:07 RDW 13.6 % (11.5-14.0) 06/11/20 04:07 Plt Count 217 10^3/uL (150-450) 06/11/20 04:07 Lymph % (Auto) 21.0 % (13-45) 06/11/20 04:07 [place] % (Auto) 9.5 % (3-13) 06/11/20 04:07 Eos % (Auto) 0.2 % (0-6) 06/11/20 04:07 Baso % (Auto) 0.3 % (0-2) 06/11/20 04:07 Absolute Neuts (auto) 7.0 10^3/uL (1.7-8.2) 06/11/20 04:07 Absolute Lymphs (auto) 2.1 10^3/uL (0.5-4.7) 06/11/20 04:07 Absolute Monos (auto) 1.0 10^3/uL (0.1-1.4) 06/11/20 04:07 Absolute Eos (auto) 0.0 10^3/uL (0.0-0.6) 06/11/20 04:07 Absolute Basos (auto) 0.0 10^3/uL (0.0-0.2) 06/11/20 04:07 Total Counted 100 06/10/20 11:54 Seg Neutrophils % 69.0 % (42-78) 06/11/20 04:07 Seg Neuts % (Manual) 70 % (42-78) 06/10/20 11:54 Band Neutrophils % 7 % (3-5) H 06/10/20 11:54 Lymphocytes % (Manual) 20 % (13-45) 06/10/20 11:54 Monocytes % (Manual) 3 % (3-13) 06/10/20 11:54 Eosinophils % (Manual) 0 % (0-6) 06/10/20 11:54 Basophils % (Manual) 0 % (0-2) 06/10/20 11:54 Abs Neuts (Manual) 16.7 10^3/uL (1.7-8.2) H 06/10/20 11:54 Abs Lymphs (Manual) 4.3 10^3/uL (0.5-4.7) 06/10/20 11:54 Abs Monocytes (Manual) 0.7 10^3/uL (0.1-1.4) 06/10/20 11:54 Absolute Eos (Manual) 0.0 10^3/uL (0.0-0.6) 06/10/20 11:54 Abs Basophils (Manual) 0.0 10^3/uL (0.0-0.2) 06/10/20 11:54 Clumped Platelets PRESENT 06/10/20 11:54 Platelet Comment ADEQUATE 06/10/20 11:54 Anisocytosis 1+ 06/10/20 11:54 [place] Cells SLIGHT 06/10/20 11:54 VBG pH 6.89 (7.30-7.42) L* 06/10/20 12:51 VBG pCO2 19.2 mmHg (35-63) L* 06/10/20 12:51 VBG HCO3 3.6 mmol/L (20-32) L 06/10/20 12:51 VBG Base Excess -28.6 mmol/L 06/10/20 12:51 Sodium 135.8 mmol/L (137-145) L 06/12/20 06:27 Potassium 3.2 mmol/L (3.6-5.0) L 06/12/20 06:27 Chloride 107 mmol/L (98-107) 06/12/20 06:27 Carbon Dioxide 21 mmol/L (22-30) L 06/12/20 06:27 Anion Gap 8 (5-19) 06/12/20 06:27 BUN 10 mg/dL (7-20) 06/12/20 06:27 Creatinine 0.53 mg/dL (0.52-1.25) 06/12/20 06:27 Est GFR ( Amer) > 60 (>60) 06/12/20 06:27 Est GFR (MDRD) Non-Af > 60 (>60) 06/12/20 06:27 Glucose 218 mg/dL (75-110) H 06/12/20 06:27 POC Glucose 246 mg/dL (70-110) H 06/12/20 05:28 Lactic Acid 1.7 mmol/L (0.7-2.1) 06/10/20 21:54 Calcium 8.6 mg/dL (8.4-10.2) 06/12/20 06: Magnesium 1.9 mg/dL (1.6-2.3) 06/10/20 14:30 Total Bilirubin 0.4 mg/dL (0.2-1.3) 06/12/20 06:27 Direct Bilirubin 0.1 mg/dL (0.0-0.4) 06/12/20 06:27 Neonat Total Bilirubin Not Reportable 06/12/20 06: Neonat Direct Bilirubin Not Reportable 06/12/20 06:27 Neonat Indirect Bili Not Reportable 06/12/20 06: AST 26 U/L (17-59) 06/12/20: ALT 18 U/L (<50) 06/12/20 06: Alkaline Phosphatase 135 U/L (38-126) H 06/12/20 06:27 Total Protein 5.6 g/dL (6.3-8.2) L 06/12/20 06: Albumin 3.1 g/dL (3.5-5.0) L 06/12/20 06:27 Urine Color STRAW 06/10/20 20:00 Urine Appearance CLEAR 06/10/20 20: Urine pH 5.0 (5.0-9.0) 06/10/20 20:00 Ur Specific [place] 1.011 06/10/20 20:00 Urine Protein 30 mg/dL (NEGATIVE) H 06/10/20 20:00 Urine Glucose (UA) >=500 mg/dL (NEGATIVE) H 06/10/20 20:00 Urine Ketones 80 mg/dL (NEGATIVE) H 06/10/20 20:00 Urine Blood SMALL (NEGATIVE) H 06/10/20 20:00 Urine Nitrite (Reflex) NEGATIVE (NEGATIVE) 06/10/20 20:00 Urine Bilirubin NEGATIVE (NEGATIVE) 06/10/20 20:00 Urine Urobilinogen NEGATIVE mg/dL (<2.0) 06/10/20 20:00 Leukocyte Esterase Rfl NEGATIVE (NEGATIVE) 06/10/20 20:00 Urine RBC (Auto) 0 /HPF 06/10/20 20:00 Urine Bacteria (Auto) TRACE /HPF 06/10/20 20:00 Urine WBC (Reflex) < 1 /HPF 06/10/20 20:00 Squamous Epi Cells Auto <1 /HPF 06/10/20 20:00 Urine Mucus (Auto) RARE /LPF 06/10/20 20:00 Urine Ascorbic Acid NEGATIVE (NEGATIVE) 06/10/20 20:00 COVID-19 Source See comment 06/10/20 13:37 COVID-19 (JOANNA) Not Detected (Not Detect) 06/10/20 13:37 Impressions: Chest X-Ray 06/10/20 00:00 IMPRESSION: NO ACUTE RADIOGRAPHIC FINDING IN THE CHEST. Plan Health Concerns: Recurrence of DKA Plan of Treatment: Resume insulin pump. Goals: Normalize blood sugar Critical Time: 40 Level of Care: MEDICAL Stroke Is this a Stroke Patient?: No Acute Heart Failure Is this a Heart Failure Patient?: No
[2020-06-12 08:02] VITALS: BP 117/76
[2020-06-12] MEDS ORDERED: POTASSIUM CHLORIDE 10 MEQ TABLET.ER PO ONE (08:30)
[2020-06-12] MEDS: INSULIN GLARGINE,HUM.REC.ANLOG 1,000 UNIT/10 ML VIAL SUBCUT SCH (09:56)
== END 2020-06-12 13:15 | disposition home or self-care (01) | DRG 639 ==
LOC: ER 10:27 → EH 15:06 → ICU 20:17
PROVIDERS: ADMIT Anesthesiology; ATTEND Anesthesiology
DX: E10.10 Type 1 diabetes mellitus with ketoacidosis without coma (principal); E87.6 Hypokalemia; R06.82 Tachypnea, not elsewhere classified; Z87.891 Personal history of nicotine dependence; Z20.828 Contact with and (suspected) exposure to other viral communicable diseases; Z23 Encounter for immunization
CPT/HCPCS: 36415; 71045; 80048; 80053; 81001; 82010; 82803; 82962; 83605; 83735; 85025; 87040; 87070; 87635; 90471; 90686; 93005; 93010; 96361; 96365; 96366; 99239; 99285; 99291; C9803; G0008; J1650; J1815; J7030; J7050